=== PATIENT | male | born 1985 | race Caucasian/White ===

== ENCOUNTER → 2016-07-04 | Outpatient (CLI) | payer OTHER ==
--- NOTE | 2016-07-04 15:10 | RADRPT ---
EXAM DATE/TIME: 07/04/2016 14:10 [place] COMPARISON: No previous studies available for comparison. INDICATIONS : Nicotine dependence. MEDICAL HISTORY : None. SURGICAL HISTORY : None. ENCOUNTER: Initial ACUITY: 1 day PAIN SCORE: 0/10 LOCATION: chest FINDINGS: The cardiac silhouette is enlarged in transverse diameter. The lungs are free of acute parenchymal op acity. No effusions are identified. Osseous structures are intact. CONCLUSION: Cardiomegaly. No acute cardiopulmonary disease. Sánchez Bonilla MD on July 04, 2016 at 15:09 Board Certified Radiologist. This report was verified electronically.
--- NOTE | 2016-07-05 22:57 | EKG ---
Date Performed: 07/04/2016 Time Performed: 13:42:44 PTAGE: 30 years EKG: Sinus rhythm NORMAL ECG NO PREVIOUS TRACING DOCTOR: Margarita Reyes Interpretating Date/Time 07/05/2016 22:50:01
== END ==
LOC: HCAV 13:35
PROVIDERS: ATTEND Surgery
DX: F17.200 Nicotine dependence, unspecified, uncomplicated (principal)
CPT/HCPCS: 71020; 93005

== ENCOUNTER → 2016-08-22 | Outpatient (CLI) | payer OTHER ==
[~2016-08-22] VITALS: Ht 172.7 cm; Wt 157.9 kg
[~2016-08-22] MED LIST: INSULIN HUMAN REGULAR 1,000 UNITS/10 ML VIAL SQ PRN; LACTATED RINGER'S 1000 ML IV SCH; METOPROLOL TARTRATE 25 MG TAB PO PRN; PROPOFOL 200 MG/20 ML AMP IV ONE; SODIUM CHLORID 0.9% 500 ML IV SCH
[2016-08-22 09:54] VITALS: BP 143/82; PULSE 92; RESP 18; TEMP 98.5; O2SAT 97
[2016-08-22 11:22] VITALS: TEMP 97.4
--- NOTE | 2016-08-22 11:26 | GIPROC ---
[facility] [address] [facility], [address] EGD PROCEDURE REPORT EXAM DATE: 08/22/2016 PATIENT NAME: Butch Forrest MR #: [id number] BIRTHDATE: 1985 ATTENDING: Ray Nesbitt MD ORDER #: [id number] IMPROVEMENT INTERN: Aashish Jj and Cameron Roth STATUS: outpatient INDICATIONS: The patient is a 31 yr old male here for an EGD due to dyspepsia PROCEDURE PERFORMED: EGD w/ biopsy MEDICATIONS: None and Per Anesthesia. TOPICAL ANESTHETIC: none CONSENT: The patient understands the risks and benefits of the procedure and understands that these risks include, but are not limited to: sedation, allergic reaction, infection, perforation and/or bleeding. Alternative means of evaluation and treatment include, among others: physical exam, x-rays, and/or surgical intervention. The patient elects to proceed with this endoscopic procedure. medical equipment was checked for proper function. Hand hygiene and appropriate measures for infection prevention was taken. After the risks, benefits and alternatives of the procedure were thoroughly explained, Informed consent was verified, confirmed and timeout was successfully executed by the treatment team. The patient was anesthetized with topical anesthesia and the Pentax EG-[id number] endoscope was introduced through the mouth and advanced to the second portion of the duodenum. Retroflexed views revealed no abnormalities The gastroscope was then slowly withdrawn and removed. Normal exam, Bx to R/O H pylori. ADVERSE EVENTS: There were no complications. IMPRESSIONS: 1. Normal exam, Bx to R/O H pylori 2. Retroflexed views revealed no abnormalities RECOMMENDATIONS: 1. await biopsy results. Biopsy results will not be ready for 7-10 days. If you don't hear from us in two weeks, call our office for biopsy results. 2. ok to have beriatric surgery PATIENT CONDITION: stable DISPOSITION: Home REPEAT EXAM: Return as needed for EGD. Ray Nesbitt MD eSigned: Ray Nesbitt MD 08/22/2016 11:25 AM cc: CPT CODES: 37978 Upper gastrointestinal endoscopy including esophagus, stomach, and either the duodenum and/or jejunum as appropriate; with biopsy, single or multiple ICD CODES: 536.8 Dyspepsia and other specified disorders of function of stomach The ICD and CPT codes recommended by this software are interpretations from the data that the clinical staff has captured with the software. The verification of the translation of this report to the ICD and CPT codes and modifiers is the sole responsibility of the health care institution and practicing physician where this report was generated. Review [employer] will not be held responsible for the validity of the ICD and CPT codes included on this report. AMA assumes no liability for data contained or not contained herein. CPT is a registered trademark of the [employer]. [id number]
[2016-08-22 11:40] VITALS: BP 125/81; PULSE 83; RESP 16; O2SAT 96
== END ==
LOC: HEND 09:20
PROVIDERS: ATTEND Hospitalist
DX: Z01.818 Encounter for other preprocedural examination (principal); R10.13 Epigastric pain; E66.01 Morbid (severe) obesity due to excess calories; Z68.43 Body mass index [BMI] 50.0-59.9, adult
CPT/HCPCS: 00740; 43239; 88305; 88312; J7120

== ENCOUNTER 2017-05-14 23:45 | Inpatient (IN) | payer OTHER ==
[~2017-05-14] VITALS: Ht 172.7 cm; Wt 165.0 kg
[2017-05-14] MEDS: SODIUM CHLORIDE 0.9% FLUSH 10 ML FLUSH IV FLUSH SCH (21:00)
[~2017-05-14 23:45] MED LIST changes: -INSULIN HUMAN REGULAR 1,000 UNITS/10 ML VIAL SQ PRN; -LACTATED RINGER'S 1000 ML IV SCH; -METOPROLOL TARTRATE 25 MG TAB PO PRN; +NALOXONE HCL 0.4 MG/ML AMP IV PUSH PRN; -PROPOFOL 200 MG/20 ML AMP IV ONE; -SODIUM CHLORID 0.9% 500 ML IV SCH; +SODIUM CHLORIDE 0.9% FLUSH 10 ML FLUSH IV FLUSH PRN; +Vancomycin Consult Pharmacy 1 EA OTHER SCH
[2017-05-15] VITALS: BP 129/67; PULSE 90; RESP 18; TEMP 98.8; O2SAT 98
[2017-05-15] MEDS: SODIUM CHLORIDE 0.9% FLUSH 10 ML FLUSH IV FLUSH SCH ×2 (01:06→21:15)
[2017-05-15] MEDS: PIPERACIL-TAZO 4.5 GM PREMIX 100 ML IV SCH ×4 (02:21→21:12)
[2017-05-15] MEDS ORDERED: VANCOMYCIN INJ 2,500 MG in SODIUM CHLORID 0.9% 500 ML INJ 500 ML IV ONE (03:00)
[2017-05-15 04:00] VITALS: BP 119/58; PULSE 88; RESP 18; TEMP 98.2; O2SAT 97
--- NOTE | 2017-05-15 04:54 | HHI.HP ---
[facility] No Primary Care Physician Admission Diagnosis Cellulitis - suspected abscess right groin/inguinal area Diagnoses: (1) Cellulitis of groin, right (2) Sepsis (3) History of MRSA infection Chief Complaint: Right groin pain, tenderness, swelling Travel History International Travel<30 Days: No Contact w/Intl Traveler <30 Da: No History of Present Illness Mr. Forrest is a very pleasant 31-year-old male with a history of right thumb MRSA infection who presented to the emergency room in [place] for evaluation of right inguinal/groin area swelling, pain, and fevers. His temperature was 100.3 on admission and he was tachycardic with heart rate of 109. White blood count was elevated at 22.4 and left shift was noted. The patient had a CT of the abdomen and pelvis which showed right inguinal cellulitis with no abscess formation and the patient was transferred to [facility] for further medical management. The patient is seen in his hospital room. He reports having symptoms for since Friday or Friday. He had a "boil" that he popped on his left upper medial thigh that drained purulent exudate and has continued to drain since Friday or Friday. Around the same time, he noted a lump in the right groin/inguinal region that got progressively more painful and hard. He also had chills and diaphoresis along with generally feeling not very well with fatigue, nausea, and increased sleepiness. He denies any chest pain, cough, shortness of breath , diarrhea, vomiting, or recorded fevers. Review of Systems Except as stated in HPI: all other systems reviewed are Neg Past Family Social History Past Medical History Right thumb infection - history of MRSA 2003 Denies diabetes mellitus, hypertension, coronary artery disease, congestive heart failure, atrial fibrillation, COPD, asthma, emphysema, liver problems, kidney problems, DVT, PE, CVA, seizure, thyroid dysfunction, or cancers. . Past Surgical History 3 surgeries to irrigate and debride right thumb finger tip - I&D 2003 . Reported Medications Reported Meds & Active Scripts Active No Active Prescriptions or Reported Medications . Allergies: Coded Allergies: No Known Allergies (Verified Allergy, Unknown, 05/14/17) Active Ordered Medications . Current Medications Sodium Chloride (NS Flush) 2 ml UNSCH PRN IV FLUSH FLUSH AFTER USING IV ACCESS ; Start 05/14/17 at 20:45 Sodium Chloride (NS Flush) 2 ml BID IV FLUSH Last administered on 05/15/17 01 :06; Start 05/14/17 at 21:00 Naloxone HCl (Narcan Inj) 0.4 mg UNSCH PRN IV PUSH SEE LABEL COMMENTS; Start 05/14/17 at 20:45 Pharmacy Profile Note 0 ml @ 0 mls/hr UNSCH OTHER ; Start 05/14/17 at 21:00 Piperacillin Sod/ Tazobactam Sod 100 ml @ 200 mls/hr Q6H IV Last administered on 05/15/17 02:21; Start 05/15/17 at 02:00 Vancomycin HCl 2500 mg/Sodium Chloride 525 ml @ 250 mls/hr ONCE ONCE IV Last administered on 05/15/17 02:42; Start 05/15/17 at 03:00; Stop 05/15/17 at 05 :05 Family History Denies any chronic medical conditions such as diabetes mellitus or heart disease in mother, father, siblings, or son . Social History Tobacco: Smokes 1 pack per day for 14 years Alcohol: Rare alcohol use Illicit Drugs: Occasional marijuana use The patient works on a [employer] - is a former [email or web address] employee - worked as a APPLICATIONS SYSTEMS ENGINEER in [place] He enjoys fishing and hunting . Physical Exam Vital Signs Vital Signs Date Time Temp Pulse Resp B/P (MAP) Pulse Ox O2 Delivery O2 Flow Rate FiO2 05/15/17 00:00 98.8 90 18 129/67 (87) 98 Physical Exam GENERAL: This is a morbidly obese male patient, in no apparent distress. SKIN: No rashes, ecchymoses or lesions. Somewhat diaphoretic. HEAD: Atraumatic. Normocephalic. EYES: No scleral icterus. No injection or drainage. ENT: Nose without bleeding, purulent drainage. NECK: Trachea midline. No JVD. CARDIOVASCULAR: Regular rate and rhythm without murmurs, gallops, or rubs. RESPIRATORY: Clear to auscultation. Breath sounds equal bilaterally. No wheezes , rales, or rhonchi. GASTROINTESTINAL: Abdomen soft, non-tender, nondistended. No guarding. : Left groin with small dime-sized open wound to left upper medial thigh near groin draining purulent exudate. Right inguinal groin region with palpable circumscribed mass that is hard and exquisitely tender to palpation. MUSCULOSKELETAL: Extremities without clubbing, cyanosis, or edema. No calf tenderness. NEUROLOGICAL: Awake and alert. Motor and sensory grossly within normal limits. Normal speech. . Laboratory From [place]: Laboratory Tests Test 05/14/17 18:15 05/14/17 18:22 05/14/17 18:32 White Blood Count 22.4 TH/MM3 Red Blood Count 4.44 MIL/MM3 Hemoglobin 12.5 GM/DL Hematocrit 37.1 % Mean Corpuscular Volume 83.6 FL Mean Corpuscular Hemoglobin 28.2 PG Mean Corpuscular Hemoglobin Concent 33.7 % Red Cell Distribution Width 12.5 % Platelet Count 331 TH/MM3 Mean Platelet Volume 10.0 FL Immature Granulocyte % (Auto) 0.6 % Neutrophils (%) (Auto) 77.0 % Lymphocytes (%) (Auto) 12.7 % Monocytes (%) (Auto) 8.9 % Eosinophils (%) (Auto) 0.4 % Basophils (%) (Auto) 0.4 % Immature Granulocyte # (Auto) 0.1 TH/MM3 Neutrophils # (Auto) 17.3 TH/MM3 Lymphocytes # (Auto) 2.9 TH/MM3 Monocytes # (Auto) 2.0 TH/MM3 Eosinophils # (Auto) 0.1 TH/MM3 Basophils # (Auto) 0.1 TH/MM3 CBC Comment DIFF FINAL Differential Comment Blood Urea Nitrogen 6 MG/DL Creatinine 0.80 MG/DL Random Glucose 91 MG/DL Total Protein 7.2 GM/DL Albumin 3.0 GM/DL Calcium Level 8.5 MG/DL Alkaline Phosphatase 62 U/L Aspartate Amino Transf (AST/SGOT) 12 U/L Alanine Aminotransferase (ALT/SGPT) 32 U/L Total Bilirubin 0.5 MG/DL Sodium Level 137 MEQ/L Potassium Level 3.6 MEQ/L Chloride Level 102 MEQ/L Carbon Dioxide Level 26.0 MEQ/L Anion Gap 9 MEQ/L Estimat Glomerular Filtration Rate 112 ML/MIN Urine Collection Type CATH Urine Color YELLOW Urine Turbidity CLEAR Urine pH 6.0 Urine Specific [place] LESS/EQUAL 1.005 Urine Protein NEG mg/dL Urine Glucose (UA) NEG mg/dL Urine Ketones NEG mg/dL Urine Occult Blood TRACE Urine Nitrite NEG Urine Bilirubin NEG Urine Urobilinogen 0.2 MG/DL Urine Leukocyte Esterase NEG Microscopic Urinalysis Comment CATH-CULT NOT IND Lactic Acid Level 0.6 mmol/L . Imaging From [place] Last Impressions Abdomen/Pelvis CT 05/14/17 9535 Signed Impressions: Service Date/Time: Sunday, May 14, 2017 19:14 - CONCLUSION: 1. Right inguinal cellulitis with no abscess formation. 2. Innumerable noncalcified gallstones in the gallbladder lumen. 3. Nonobstructing 3 mm calculus in the lower pole collecting system of the right kidney. Benign cortical cyst in the anterior midpole of the left kidney. MD Luis Armando Lowery VTE Risk Assessment Luis Armando VTE Risk Assessment: Mod/High Risk (score >= 2) Caprini Risk Assessment Model Point Value = 1 Point Value = 2 Point Value = 3 Point Value = 5 Age 41-60 Minor surgery BMI > 25 kg/m2 Swollen legs Varicose veins or History of unexplained or recurrent spontaneous Oral contraceptives or hormone replacement Sepsis (< 1 month) Serious lung disease, including pneumonia (< 1 month) Abnormal pulmonary function Acute myocardial infarction Congestive heart failure (< 1 month) History of inflammatory bowel disease Medical patient at bed rest Age 61-74 Arthroscopic surgery Major open surgery (> 45 min) Laparoscopic surgery (> 45 min) Malignancy Confined to bed (> 72 hours) Immobilizing plaster cast Central venous access Age >= 75 History of VTE Family history of VTE Factor V Leiden Prothrombin 00638M Lupus anticoagulant Anticardiolipin antibodies Elevated serum homocysteine Heparin-induced thrombocytopenia Other congenital or acquired thrombophilia Stroke (< 1 month) Elective arthroplasty Hip, pelvis, or leg fracture Acute spinal cord injury (< 1 month) Prophylaxis Regimen Total Risk Factor Score Risk Level Prophylaxis Regimen 0-1 Low Early ambulation 2 Moderate Order ONE of the following: *Sequential Compression Device (SCD) *Heparin 5000 units SQ BID 3-4 Higher Order ONE of the following medications: *Heparin 5000 units SQ TID *Enoxaparin/Lovenox 40 mg SQ daily (WT < 150 kg, CrCl > 30 mL/min) *Enoxaparin/Lovenox 30 mg SQ daily (WT < 150 kg, CrCl > 10-29 mL/min) *Enoxaparin/Lovenox 30 mg SQ BID (WT < 150 kg, CrCl > 30 mL/min) AND/OR *Sequential Compression Device (SCD) 5 or more Highest Order ONE of the following medications: *Heparin 5000 units SQ TID (Preferred with Epidurals) *Enoxaparin/Lovenox 40 mg SQ daily (WT < 150 kg, CrCl > 30 mL/min) *Enoxaparin/Lovenox 30 mg SQ daily (WT < 150 kg, CrCl > 10-29 mL/min) *Enoxaparin/Lovenox 30 mg SQ BID (WT < 150 kg, CrCl > 30 mL/min) AND *Sequential Compression Device (SCD) Assessment and Plan Problem List: (1) Cellulitis of groin, right ICD Code: L03.314 - Cellulitis of groin (2) Sepsis ICD Code: A41.9 - Sepsis, unspecified organism (3) History of MRSA infection ICD Code: Z86.14 - Personal history of Methicillin resistant Staphylococcus aureus infection (4) Tobacco abuse ICD Code: Z72.0 - Tobacco use Assessment and Plan Mr. Forrest is a very pleasant 31-year-old male with a history of right thumb MRSA infection who presented to the emergency room in [place] for evaluation of right inguinal/groin area swelling, pain, and fevers. His temperature was 100.3 on admission and he was tachycardic with heart rate of 109. White blood count was elevated at 22.4 and left shift was noted. The patient had a CT of the abdomen and pelvis which showed right inguinal cellulitis with no abscess formation and the patient was transferred to [facility] [place] for further medical management. Sepsis - meets sepsis criteria with fever, tachycardia, leukocytosis, and suspected source of infection Cellulitis of right groin/inguinal area - abscess suspected based on examination - We will check an ultrasound of the right groin/inguinal area to further assess for abscess - Antibiotics: Vancomycin and Zosyn - Initial lactic acid was 0.6 - will recheck with morning labs - Initial WBC was 22.4 with left shift - we will recheck CBC and follow trends - Consult wound care nurse to evaluate small draining wound on left thigh - appreciate assistance with recommendations for wound care - Contact isolation initiated for history of MRSA Tobacco abuse - Advised smoking cessation DVT prophylaxis - Heparin 5000 units subq BID Discussed Condition With Dr. Oung, patient, and bedside RN Physician Certification 2 Midnight Certification Type: Admission for Inpatient Services Order for Inpatient Services The services are ordered in accordance with Medicare regulations or non- Medicare payer requirements, as applicable. In the case of services not specified as inpatient-only, they are appropriately provided as inpatient services in accordance with the 2-midnight benchmark. Estimated LOS (days): 3 days is the estimated time the patient will need to remain in the hospital, assuming treatment plan goals are met and no additional complications. Post-Hospital Plan: Home Madeline Plascencia May 15, 2017 04:54
[2017-05-15 07:16] LABS: BASOPHIL # 0.2 TH/MM3 (0-0.2); BASOPHIL % 0.9 % (0.0-2.0); EOSINOPHIL # 0.2 TH/MM3 (0-0.4); EOSINOPHIL % 1.2 % (0.0-4.0); HEMATOCRIT 33.9 % (39.0-51.0); HEMO FLAGS DIFF FINAL; LYMPH % 7.3 % (9.0-44.0); LYMPHOCYTE # 1.4 TH/MM3 (1.0-4.8); MEAN CELL VOLUME 82.1 FL (80.0-100.0); MEAN CORPUSCULAR HEMOGLOBIN 28.6 PG (27.0-34.0); MEAN CORPUSCULAR HGB CONC 34.9 % (32.0-36.0); MONO % 8.2 % (0.0-8.0); NEUT % 82.4 % (16.0-70.0); PLATELET COUNT 284 TH/MM3 (150-450); RED BLOOD COUNT 4.13 MIL/MM3 (4.50-5.90); RED CELL DISTRIBUTION WIDTH 13.1 % (11.6-17.2); WHITE BLOOD COUNT 19.4 TH/MM3 (4.0-11.0)
[2017-05-15 07:43] LABS: BICARBONATE 25.3 MEQ/L (21.0-32.0); POTASSIUM 3.6 MEQ/L (3.5-5.1)
--- NOTE | 2017-05-15 08:33 | HHI.PR ---
Subjective Remarks Patient admitted Today, He is a very pleasant 31 y/o male with was seen initially at [place] [facility] due to Right inguinal/groin area swelling, pain, and fevers. His temperature was 100.3 on admission and he was tachycardic with heart rate of 109. White blood count was elevated at 22.4 and left shift was noted. The patient had a CT of the abdomen and pelvis which showed right inguinal cellulitis with no abscess formation and the patient was transferred to [facility] [place] for further medical management. He had a "boil" that he popped on his left upper medial thigh that drained purulent exudate and has continued to drain since Friday or Friday. he has history of right thumb infection and MRSA in 2003. has tobacco dependence and Marijuana abuse. Seen in his bedroom stable he had not drainable tissue on the right side as per Ultrasound, on the left as per public health clinical nurse specialist okay is packing, will ask for evaluation by General Surgery by tomorrow morning once on Antibiotics for at least 24 hours. Objective Vital Signs Date Time Temp Pulse Resp B/P (MAP) Pulse Ox O2 Delivery O2 Flow Rate FiO2 05/15/17 04:00 98.2 88 18 119/58 (78) 97 05/15/17 00:00 98.8 90 18 129/67 (87) 98 Result Diagram: 05/15/17 0700 05/15/17 0700 Imaging Last Impressions Soft Tissue Ultrasound 05/15/17 0000 Signed Impressions: Service Date/Time: April 09:13 - CONCLUSION: Apparent soft tissue edema with no focal abscess identified. Leroy Jackson MD Procedures Wound care with Packing on the left groin area. Other Results Laboratory Tests Test 05/15/17 07:00 White Blood Count 19.4 TH/MM3 Red Blood Count 4.13 MIL/MM3 Hemoglobin 11.8 GM/DL Hematocrit 33.9 % Mean Corpuscular Volume 82.1 FL Mean Corpuscular Hemoglobin 28.6 PG Mean Corpuscular Hemoglobin Concent 34.9 % Red Cell Distribution Width 13.1 % Platelet Count 284 TH/MM3 Mean Platelet Volume 8.1 FL Neutrophils (%) (Auto) 82.4 % Lymphocytes (%) (Auto) 7.3 % Monocytes (%) (Auto) 8.2 % Eosinophils (%) (Auto) 1.2 % Basophils (%) (Auto) 0.9 % Neutrophils # (Auto) 16.0 TH/MM3 Lymphocytes # (Auto) 1.4 TH/MM3 Monocytes # (Auto) 1.6 TH/MM3 Eosinophils # (Auto) 0.2 TH/MM3 Basophils # (Auto) 0.2 TH/MM3 CBC Comment DIFF FINAL Differential Comment Blood Urea Nitrogen 7 MG/DL Creatinine 0.68 MG/DL Random Glucose 99 MG/DL Calcium Level 8.2 MG/DL Sodium Level 137 MEQ/L Potassium Level 3.6 MEQ/L Chloride Level 104 MEQ/L Carbon Dioxide Level 25.3 MEQ/L Anion Gap 8 MEQ/L Estimat Glomerular Filtration Rate 135 ML/MIN Lactic Acid Level 0.6 mmol/L Objective Remarks GENERAL: This is a morbidly obese male patient, in no apparent distress. SKIN: No rashes, ecchymoses or lesions. Somewhat diaphoretic. HEAD: Atraumatic. Normocephalic. EYES: No scleral icterus. No injection or drainage. ENT: Nose without bleeding, purulent drainage. NECK: Trachea midline. No JVD. CARDIOVASCULAR: Regular rate and rhythm without murmurs, gallops, or rubs. RESPIRATORY: Clear to auscultation. Breath sounds equal bilaterally. No wheezes , rales, or rhonchi. GASTROINTESTINAL: Abdomen soft, non-tender, nondistended. No guarding. : Left groin with small dime-sized open wound to left upper medial thigh near groin draining purulent exudate. Right inguinal groin region with palpable circumscribed mass that is hard and exquisitely tender to palpation. MUSCULOSKELETAL: Extremities without clubbing, cyanosis, or edema. No calf tenderness. NEUROLOGICAL: Awake and alert. Motor and sensory grossly within normal limits. Normal speech. Medications and IVs Current Medications Medications (Trade) Dose Ordered Sig/Nelia Route Start Time Stop Time Status Last Admin (NS Flush) 2 ml UNSCH PRN IV FLUSH 05/14/17 20:45 (NS Flush) 2 ml BID IV FLUSH 05/14/17 21:00 05/15/17 01:06 (Narcan Inj) 0.4 mg UNSCH PRN IV PUSH 05/14/17 20:45 Pharmacy Profile Note 0 ml @ 0 mls/hr UNSCH OTHER 05/14/17 21:00 Piperacillin Sod/ Tazobactam Sod 100 ml @ 200 mls/hr Q6H IV 05/15/17 02:00 05/15/17 02:21 (Heparin Inj) 5,000 units Q12HR SQ 05/15/17 09:00 A/P Assessment and Plan 1. Cellulitis of right groin/inguinal area - due to abscess suspected he had Ultrasound that came Negative for drainable abscess at this time on Vancomycin and Zosyn, Initial Lactic Acid 0.6, Leukocytosis trending down from 22.4 to 19.4 wound care following, performing Packing on the left side and because he has history of MRSA on Isolation. Plan to consult General Surgery for tomorrow once receive antibiotics for at least 24 hours. Discussed with public health clinical nurse specialist Miss Lisa Marshall recommended to clean wound with Normal Saline and Pat dry Maxorb extra AG into single strip and pack wound. 2. Morbid Obesity strongly recommended diet and exercise as outpatient 3. Tobacco dependence strongly recommended to stop smoking. DVT prophylaxis - Heparin 5000 units subq BID Discussed Condition With Patient, Nurse Miss Rivas, wound care Miss Lisa Marshall Discharge Planning Expected in one to two days. David Omer MD May 15, 2017 08:33
--- NOTE | 2017-05-15 09:32 | RADRPT ---
EXAM DATE/TIME: 05/15/2017 09:13 [facility] COMPARISON: CT ABDOMEN & PELVIS W CONTRAST, May 14, 2017, 19:14. INDICATIONS : Abscess. MEDICAL HISTORY : Mass right groin. SURGICAL HISTORY : None. ENCOUNTER: Subsequent ACUITY: 1 week PAIN SCORE: 6/10 LOCATION: Right groin. AREA EVALUATED: Right groin/right inguinal canal FINDINGS: A targeted ultrasound examination was performed in the right groin in the region of concern. This dem onstrates mild dependent edema with hazy appearance. There is no focal mass or fluid collection. CONCLUSION: Apparent soft tissue edema with no focal abscess identified. Leroy Jackson MD on May 15, 2017 at 9:28 Board Certified Radiologist. This report was verified electronically.
[2017-05-15] MEDS: HEPARIN SODIUM - SQ 10,000 UNITS/ML VIAL SQ SCH ×2 (11:30→21:18)
[2017-05-15 12:00] VITALS: BP 131/67; PULSE 89; RESP 18; TEMP 98.7; O2SAT 95
[2017-05-15] MEDS: VANCOMYCIN INJ 2,500 MG in SODIUM CHLORID 0.9% 500 ML INJ 500 ML IV SCH ×2 (12:00→23:52)
[2017-05-15 12:48] LABS: HDL CHOLESTEROL 19.8 MG/DL (40.0-60.0); LDL CHOLESTEROL 74 MG/DL (0-99)
--- NOTE | 2017-05-15 15:56 | PD.WCN.NOT ---
Wound Consult Description: Consult received from Madeline ABDULLAHI for wound management of L upper medial thigh wound-draining please assist with recommendations for wound care. Communicated with: RN Iris and call placed to Doctor Ottoniel Cai for orders Recommendation: Please cleanse wound to L upper medial thigh with normal saline and pat dry.Cut Maxorb extra AG into single strip and pack wound. Apply skin prep to periwound before covering with bordered gauze dressing. Change dressing every other day or as needed for saturation is dislodgment. Patient will need outpatient instruction for wound care and has family in home that can assist him with dressing changes. Additional Information: Patient seen on for evaluation of wound management of L upper medial thigh wound-draining. Patient positioned self on back in bed with no assistance for wound assessment. skin folds of L groin to reveal small wound to L medial upper thigh just below the groin.Wound bed presents with ~80% clean red tissue and ~20% yellow exudate. Wound drainage is moderate and cloudy, thick , pink,and yellow with foul odor. Periwound presents with induration from 6 to 11 o'clock. Drainage increased with expression.Wound measures ~1cm x ~2cm x 2.4cm. Wound depth is assessed in center of wound. Cleansed wound with normal saline and pat dry. Applied dry 4x4 gauze over wound bed and secured with 1 piece of silk tape. RN to apply dressing as recommended when supplies obtained. Lisa Marshall [facility] May 15, 2017 15:56
[2017-05-15 16:00] VITALS: BP 142/75; PULSE 94; RESP 18; TEMP 98.8; O2SAT 96
[2017-05-15 17:14] LABS: HEMOGLOBIN A1a 1.1 %; HEMOGLOBIN A1b 1.5 %; HEMOGLOBIN Ao 85.9 %; HEMOGLOBIN P3 3.6 %
[2017-05-15] MEDS ORDERED: ACETAMINOPHEN 325 MG TAB PO PRN (17:15)
[2017-05-15] MEDS: ACETAMINOPHEN/HYDROcodone 325 MG/10 MG TAB PO PRN ×2 (18:36→22:28)
[2017-05-15 21:01] VITALS: BP 136/64; PULSE 91; RESP 18; TEMP 99.3; O2SAT 95
[2017-05-16] VITALS (7 sets, daily range): BP systolic 103–127; BP diastolic 54–94; PULSE 70–87; RESP 18–22; TEMP 98.1–98.7; O2SAT 94–98
[2017-05-16] MEDS: ACETAMINOPHEN/HYDROcodone 325 MG/10 MG TAB PO PRN (04:14)
[2017-05-16] MEDS: PIPERACIL-TAZO 4.5 GM PREMIX 100 ML IV SCH ×4 (05:56→22:46)
[2017-05-16 07:28] LABS: AUTOMATED NEUTROPHIL # 10.6 TH/MM3 (1.8-7.7); BASOPHIL # 0.1 TH/MM3 (0-0.2); BASOPHIL % 0.4 % (0.0-2.0); EOSINOPHIL # 0.8 TH/MM3 (0-0.4); EOSINOPHIL % 5.9 % (0.0-4.0); HEMATOCRIT 34.5 % (39.0-51.0); HEMO FLAGS DIFF FINAL; LYMPH % 9.5 % (9.0-44.0); LYMPHOCYTE # 1.3 TH/MM3 (1.0-4.8); MEAN CELL VOLUME 83.3 FL (80.0-100.0); MEAN CORPUSCULAR HEMOGLOBIN 28.3 PG (27.0-34.0); MONO % 8.8 % (0.0-8.0); NEUT % 75.4 % (16.0-70.0); PLATELET COUNT 271 TH/MM3 (150-450); RED BLOOD COUNT 4.14 MIL/MM3 (4.50-5.90); RED CELL DISTRIBUTION WIDTH 13.2 % (11.6-17.2); WHITE BLOOD COUNT 14.1 TH/MM3 (4.0-11.0)
[2017-05-16 07:47] LABS: BICARBONATE 27.3 MEQ/L (21.0-32.0)
[2017-05-16] MEDS: SODIUM CHLORIDE 0.9% FLUSH 10 ML FLUSH IV FLUSH SCH ×2 (09:00→22:55)
[2017-05-16] MEDS: HEPARIN SODIUM - SQ 10,000 UNITS/ML VIAL SQ SCH ×2 (09:00→22:46)
--- NOTE | 2017-05-16 09:17 | HHI.PR ---
Subjective Remarks He is a very pleasant 31 y/o male with was seen initially at [place] [facility] due to Right inguinal/groin area swelling, pain, and fevers. His temperature was 100.3 on admission and he was tachycardic with heart rate of 109. White blood count was elevated at 22.4 and left shift was noted. The patient had a CT of the abdomen and pelvis which showed right inguinal cellulitis with no abscess formation and the patient was transferred to [facility] [facility] [place] for further medical management. He had a "boil" that he popped on his left upper medial thigh that drained purulent exudate and has continued to drain since Friday or Friday. he has history of right thumb infection and MRSA in 2003. has tobacco dependence and Marijuana abuse. Seen in his bedroom stable he had not drainable tissue on the right side as per Ultrasound, on the left as per ncqa specialist okay is packing, will ask for evaluation by General Surgery by tomorrow morning once on Antibiotics for at least 24 hours. 05/16: Seen in his bedroom, Pain medication adjusted, made NPO and asked for General Surgery evaluation may need procedure his WBC count is trending down, was discussed with nurse and Associate Professor Of EngineeringTool Shaper Setup Operator. No nausea, vomit or diarrhea. Objective Vital Signs Date Time Temp Pulse Resp B/P (MAP) Pulse Ox O2 Delivery O2 Flow Rate FiO2 05/16/17 08:13 98.3 70 20 103/54 (70) 96 05/16/17 04:00 98.5 83 22 121/94 (103) 98 05/16/17 03:15 79 05/16/17 00:00 98.3 81 22 110/94 (99) 94 05/15/17 21:01 99.3 91 18 136/64 (88) 95 05/15/17 16:00 98.8 94 18 142/75 (97) 96 05/15/17 12:00 98.7 89 18 131/67 (88) 95 I/O 05/15/17 05/15/17 05/15/17 05/16/17 05/16/17 05/16/17 07:00 15:00 23:00 07:00 15:00 23:00 Intake Total 400 ml Output Total 500 ml Balance -100 ml Intake Oral 400 ml Output Urine Total 500 ml Stool Total 0 ml # Voids 3 # Bowel Movements 1 Result Diagram: 05/16/17 0618 05/16/17 0618 Imaging Last Impressions Soft Tissue Ultrasound 05/15/17 0000 Signed Impressions: Service Date/Time: April 09:13 - CONCLUSION: Apparent soft tissue edema with no focal abscess identified. Leroy Jackson MD Procedures Wound care with Packing on the left groin area. Other Results Laboratory Tests Test 05/15/17 07:00 05/16/17 06:18 Hemoglobin A1c 5.3 % Lactic Acid Level 0.6 mmol/L Triglycerides Level 102 MG/DL Cholesterol Level 114 MG/DL LDL Cholesterol 74 MG/DL HDL Cholesterol 19.8 MG/DL Cholesterol/HDL Ratio 5.75 RATIO Thyroid Stimulating Hormone 3rd Gen 1.510 uIU/ML White Blood Count 14.1 TH/MM3 Red Blood Count 4.14 MIL/MM3 Hemoglobin 11.7 GM/DL Hematocrit 34.5 % Mean Corpuscular Volume 83.3 FL Mean Corpuscular Hemoglobin 28.3 PG Mean Corpuscular Hemoglobin Concent 34.0 % Red Cell Distribution Width 13.2 % Platelet Count 271 TH/MM3 Mean Platelet Volume 8.4 FL Neutrophils (%) (Auto) 75.4 % Lymphocytes (%) (Auto) 9.5 % Monocytes (%) (Auto) 8.8 % Eosinophils (%) (Auto) 5.9 % Basophils (%) (Auto) 0.4 % Neutrophils # (Auto) 10.6 TH/MM3 Lymphocytes # (Auto) 1.3 TH/MM3 Monocytes # (Auto) 1.2 TH/MM3 Eosinophils # (Auto) 0.8 TH/MM3 Basophils # (Auto) 0.1 TH/MM3 CBC Comment DIFF FINAL Differential Comment Blood Urea Nitrogen 6 MG/DL Creatinine 0.73 MG/DL Random Glucose 102 MG/DL Calcium Level 8.0 MG/DL Sodium Level 138 MEQ/L Potassium Level 4.0 MEQ/L Chloride Level 104 MEQ/L Carbon Dioxide Level 27.3 MEQ/L Anion Gap 7 MEQ/L Estimat Glomerular Filtration Rate 125 ML/MIN Objective Remarks GENERAL: This is a morbidly obese male patient, in no apparent distress. SKIN: No rashes, ecchymoses or lesions. Somewhat diaphoretic. HEAD: Atraumatic. Normocephalic. EYES: No scleral icterus. No injection or drainage. ENT: Nose without bleeding, purulent drainage. NECK: Trachea midline. No JVD. CARDIOVASCULAR: Regular rate and rhythm without murmurs, gallops, or rubs. RESPIRATORY: Clear to auscultation. Breath sounds equal bilaterally. No wheezes , rales, or rhonchi. GASTROINTESTINAL: Abdomen soft, non-tender, nondistended. No guarding. : Left groin with small dime-sized open wound to left upper medial thigh near groin draining purulent exudate. Right inguinal groin region with palpable circumscribed mass that is hard and exquisitely tender to palpation. MUSCULOSKELETAL: Extremities without clubbing, cyanosis, or edema. No calf tenderness. NEUROLOGICAL: Awake and alert. Motor and sensory grossly within normal limits. Normal speech. Medications and IVs Current Medications Medications (Trade) Dose Ordered Sig/Nelia Route Start Time Stop Time Status Last Admin (NS Flush) 2 ml UNSCH PRN IV FLUSH 05/14/17 20:45 (NS Flush) 2 ml BID IV FLUSH 05/14/17 21:00 05/15/17 21:15 (Narcan Inj) 0.4 mg UNSCH PRN IV PUSH 05/14/17 20:45 Pharmacy Profile Note 0 ml @ 0 mls/hr UNSCH OTHER 05/14/17 21:00 Piperacillin Sod/ Tazobactam Sod 100 ml @ 200 mls/hr Q6H IV 05/15/17 02:00 05/16/17 05:56 (Heparin Inj) 5,000 units Q12HR SQ 05/15/17 09:00 05/15/17 21:18 Vancomycin HCl 2500 mg/Sodium Chloride 525 ml @ 250 mls/hr Q12H IV 05/15/17 12:00 05/15/17 23:52 Miscellaneous Information SPECIFIC LAB TO BE DRAWN:VANCOMYCIN TROUGH DATE TO... ONCE ONCE .XX 05/16/17 11:45 05/16/17 11:46 (Tylenol) 650 mg Q4H PRN PO 05/15/17 17:15 ([place] 5-325 Mg) 1 tab Q4H PRN PO 05/15/17 17:15 ([place] 10-325 Mg) 1 tab Q4H PRN PO 05/15/17 17:15 05/16/17 04:14 A/P Assessment and Plan 1. Cellulitis of right groin/inguinal area - due to abscess suspected he had Ultrasound that came Negative for drainable abscess at this time on Vancomycin and Zosyn, Initial Lactic Acid 0.6, Leukocytosis trending down from 22.4 to 19.4 wound care following, performing Packing on the left side and because he has history of MRSA on Isolation. Plan to consult General Surgery for tomorrow once receive antibiotics for at least 24 hours. Discussed with ncqa specialist Miss Lisa Marshall recommended to clean wound with Normal Saline and Pat dry Maxorb extra AG into single strip and pack wound. Leave the Patient NPO starting Now and asked for General Surgery consult may need I and D, following recommendations if not needed procedure today to re start diet. 2. Morbid Obesity strongly recommended diet and exercise as outpatient 3. Tobacco dependence strongly recommended to stop smoking. DVT prophylaxis - Heparin 5000 units subq BID Discussed Condition With Patient, Nurse Mr Samano, All questions answered to the best of my abilities. Discharge Planning Expected in one to two days. David Omer MD May 16, 2017 9:17 am
[2017-05-16] MEDS ORDERED: SODIUM CHLOR 0.9% 1000 ML INJ 1,000 ML IV SCH (09:30)
[2017-05-16] MEDS ORDERED: PHARMACY ORDERED LAB ONE (11:45)
[2017-05-16] MEDS ORDERED: HYDROmorphone HCL PF 1 MG/ML VIAL IV PUSH ONE (12:15)
[2017-05-16] MEDS: VANCOMYCIN INJ 2,500 MG in SODIUM CHLORID 0.9% 500 ML INJ 500 ML IV SCH ×2 (15:20→23:55)
[2017-05-16] MEDS: HYDROmorphone HCL 4 MG TAB PO PRN ×3 (15:49→22:45)
--- NOTE | 2017-05-16 21:42 | MB ---
cc: YON JOHNSON MD DATE OF CONSULTATION 05/16/2017 REASON FOR CONSULTATION Groin abscess. HISTORY OF PRESENT ILLNESS The patient is a 31-year-old male who presents with history of thumb MRSA infection presented to the emergency department with groin swelling pain. The patient started states both left and right groin area swelling that began Friday and continued to get worse. He states he popped a "pimple" with purulent drainage coming from the left side. He came to the emergency department for further evaluation including CT scan showing induration and cellulitic tissue around his groin area. He states the left groin started to improve, however, the right continued to get somewhat worse in pain and pressure. He had a recent ultrasound showing on the right side concern for cellulitic changes of groin area. No drainable discernible abscess. The patient did have a leukocytosis of 22,000 initially, but is improving with antibiotics. Surgery was consulted for further evaluation. PAST MEDICAL HISTORY MRSA thumb infection. PAST SURGICAL HISTORY Patient has had I&D of thumb in 2003. SOCIAL HISTORY Positive smoking, occasional ETOH, denies IVDA. MEDICATIONS No known medications. ALLERGIES No known drug allergies. FAMILY HISTORY Denies diabetes, hypertension. REVIEW OF SYSTEMS GENERAL: Denies fevers, chills. HEENT: Denies eye pain, ear pain. NECK: Denies swelling or pain. LUNGS: Denies cough or wheeze. HEART: Denies palpitation or pain. ABDOMEN: Denies nausea, vomiting, groin area complained of swelling and pain. INTEGUMENT: Complains of cellulitis, lesion. PSYCHIATRIC: No change in mood or sensorium. PHYSICAL EXAMINATION GENERAL: No acute distress. VITAL SIGNS: Temperature on admission is 98.8, pulse 90, respirations 18, blood pressure 128/67 and saturation 98%. HEENT: PERRLA, NECK: Supple. Trachea midline. LUNGS: Clear to auscultation, bilateral expansion. HEART: S1, S2 regular. ABDOMEN: Soft, nontender. Nondistended. : Left groin with a 1 x 1 cm opening left medial groin area with scant exudate. Positive induration and minimal cellulitic changes, right sided groin tenderness to palpation. induration, no fluctuance, palpation of definitive fluid. no significant erythema. EXTREMITIES: Warm, well-perfused NEUROLOGIC: 5/5 motor all extremities. GCS of 15. PSYCHIATRIC: Good insight, good judgment. LABORATORY AND DIAGNOSTIC DATA WBC 14.1, hemoglobin 11.7, hematocrit 34.5, platelets 271. Sodium 138, potassium four, chloride 104, BUN six, creatinine 0.7, glucose 102. IMAGING STUDIES Reviewed by myself. CT 05/14/2017 Right inguinal cellulitis. No abscess, gallstones calcification, renal stone. Soft tissue ultrasound - right groin edema, haziness, no focal fluid collection. ASSESSMENT The patient is a 31-year-old male history of MRSA infection presents with bilateral groin cellulitic infection. PLAN After full clinical, radiologic and laboratory workup, patient with above-named issues including groin cellulitis. At this point, I do not feel definitive abscess. The left side appears to have opened and some drainage from this and appears to have improved. The right side feels indurated and concerning for developing organizing abscess. However, I cannot appreciate this at this time. I currently recommend IV fluids and IV pain control, IV antibiotics. We will reassess and continue to follow. We will consider operative intervention when definitive abscess demarcates. MD KARINA Dooley/ /8:05 PM /9:20 PM MTDD
[2017-05-17] VITALS (9 sets, daily range): BP systolic 109–146; BP diastolic 52–72; PULSE 68–87; RESP 17–18; TEMP 97.5–98.6; O2SAT 92–99
[2017-05-17] MEDS: PIPERACIL-TAZO 4.5 GM PREMIX 100 ML IV SCH ×4 (02:57→20:23)
[2017-05-17] MEDS: HYDROmorphone HCL 4 MG TAB PO PRN ×5 (03:51→20:35)
[2017-05-17] MEDS: SODIUM CHLORIDE 0.9% FLUSH 10 ML FLUSH IV FLUSH SCH ×2 (08:21→20:29)
[2017-05-17] MEDS: HEPARIN SODIUM - SQ 10,000 UNITS/ML VIAL SQ SCH ×2 (08:23→20:28)
--- NOTE | 2017-05-17 08:26 | HHI.PR ---
Subjective Remarks He is a very pleasant 31 y/o male with was seen initially at [place] [facility] due to Right inguinal/groin area swelling, pain, and fevers. His temperature was 100.3 on admission and he was tachycardic with heart rate of 109. White blood count was elevated at 22.4 and left shift was noted. The patient had a CT of the abdomen and pelvis which showed right inguinal cellulitis with no abscess formation and the patient was transferred to [facility] [place] for further medical management. He had a "boil" that he popped on his left upper medial thigh that drained purulent exudate and has continued to drain since Friday or Friday. he has history of right thumb infection and MRSA in 2003. has tobacco dependence and Marijuana abuse. Seen in his bedroom stable he had not drainable tissue on the right side as per Ultrasound, on the left as per mission support specialist okay is packing, will ask for evaluation by General Surgery by tomorrow morning once on Antibiotics for at least 24 hours. 05/16: Seen in his bedroom, Pain medication adjusted, made NPO and asked for General Surgery evaluation may need procedure his WBC count is trending down, was discussed with nurse and Salesforce AdministratorData Entry Assistant. 05/17: Seen in his bedroom, discussed with nurse Miss Linn and with patient, no nausea, vomit or diarrhea, heavy growth of Staph Aureus MRSA on wound, will continue Vancomycin and Pharmacy consult for Vancomycin management, General Surgery consulted and recommended to follow for 05/18/17 will re evaluate for probable abscess management. Objective Vital Signs Date Time Temp Pulse Resp B/P (MAP) Pulse Ox O2 Delivery O2 Flow Rate FiO2 05/17/17 04:40 68 05/17/17 04:15 84 05/17/17 04:11 79 05/17/17 04:00 97.5 81 18 121/58 (79) 92 05/17/17 00:00 98.4 77 18 126/68 (87) 98 05/16/17 20:00 98.7 80 18 127/66 (86) 98 05/16/17 16:44 98.1 87 18 119/55 (76) 98 05/16/17 12:12 98.3 77 20 124/66 (85) 98 I/O 05/16/17 05/16/17 05/16/17 05/17/17 05/17/172/17 07:00 15:00 23:00 07:00 15:00 23:00 Intake Total 400 ml 1450 ml Output Total 500 ml 500 ml Balance -100 ml 950 ml Intake Oral 400 ml 1450 ml Output Urine Total 500 ml 500 ml Stool Total 0 ml # Voids 3 # Bowel Movements 1 Result Diagram: 05/16/17 0618 05/16/17 0618 Imaging Last Impressions Soft Tissue Ultrasound 05/15/17 0000 Signed Impressions: Service Date/Time: April 09:13 - CONCLUSION: Apparent soft tissue edema with no focal abscess identified. Leroy Jackson MD Procedures Wound care with Packing on the left groin area. Other Results Laboratory Tests Test 05/15/17 07:00 05/16/17 06:18 05/16/17 14:30 Hemoglobin A1c 5.3 % Lactic Acid Level 0.6 mmol/L Triglycerides Level 102 MG/DL Cholesterol Level 114 MG/DL LDL Cholesterol 74 MG/DL HDL Cholesterol 19.8 MG/DL Cholesterol/HDL Ratio 5.75 RATIO Thyroid Stimulating Hormone 3rd Gen 1.510 uIU/ML White Blood Count 14.1 TH/MM3 Red Blood Count 4.14 MIL/MM3 Hemoglobin 11.7 GM/DL Hematocrit 34.5 % Mean Corpuscular Volume 83.3 FL Mean Corpuscular Hemoglobin 28.3 PG Mean Corpuscular Hemoglobin Concent 34.0 % Red Cell Distribution Width 13.2 % Platelet Count 271 TH/MM3 Mean Platelet Volume 8.4 FL Neutrophils (%) (Auto) 75.4 % Lymphocytes (%) (Auto) 9.5 % Monocytes (%) (Auto) 8.8 % Eosinophils (%) (Auto) 5.9 % Basophils (%) (Auto) 0.4 % Neutrophils # (Auto) 10.6 TH/MM3 Lymphocytes # (Auto) 1.3 TH/MM3 Monocytes # (Auto) 1.2 TH/MM3 Eosinophils # (Auto) 0.8 TH/MM3 Basophils # (Auto) 0.1 TH/MM3 CBC Comment DIFF FINAL Differential Comment Blood Urea Nitrogen 6 MG/DL Creatinine 0.73 MG/DL Random Glucose 102 MG/DL Calcium Level 8.0 MG/DL Sodium Level 138 MEQ/L Potassium Level 4.0 MEQ/L Chloride Level 104 MEQ/L Carbon Dioxide Level 27.3 MEQ/L Anion Gap 7 MEQ/L Estimat Glomerular Filtration Rate 125 ML/MIN Vancomycin Level Trough 10.4 MCG/ML Objective Remarks GENERAL: This is a morbidly obese male patient, in no apparent distress. SKIN: No rashes, ecchymoses or lesions. Somewhat diaphoretic. HEAD: Atraumatic. Normocephalic. EYES: No scleral icterus. No injection or drainage. ENT: Nose without bleeding, purulent drainage. NECK: Trachea midline. No JVD. CARDIOVASCULAR: Regular rate and rhythm without murmurs, gallops, or rubs. RESPIRATORY: Clear to auscultation. Breath sounds equal bilaterally. No wheezes , rales, or rhonchi. GASTROINTESTINAL: Abdomen soft, non-tender, nondistended. No guarding. : Left groin with small dime-sized open wound to left upper medial thigh near groin draining purulent exudate. Right inguinal groin region with palpable circumscribed mass that is hard and exquisitely tender to palpation. MUSCULOSKELETAL: Extremities without clubbing, cyanosis, or edema. No calf tenderness. NEUROLOGICAL: Awake and alert. Motor and sensory grossly within normal limits. Normal speech. Medications and IVs Current Medications Medications (Trade) Dose Ordered Sig/Nelia Route Start Time Stop Time Status Last Admin (NS Flush) 2 ml UNSCH PRN IV FLUSH 05/14/17 20:45 (NS Flush) 2 ml BID IV FLUSH 05/14/17 21:00 05/17/17 08:21 (Narcan Inj) 0.4 mg UNSCH PRN IV PUSH 05/14/17 20:45 Pharmacy Profile Note 0 ml @ 0 mls/hr UNSCH OTHER 05/14/17 21:00 Piperacillin Sod/ Tazobactam Sod 100 ml @ 200 mls/hr Q6H IV 05/15/17 02:00 05/17/17 08:21 (Heparin Inj) 5,000 units Q12HR SQ 05/15/17 09:00 05/17/17 08:23 Vancomycin HCl 2500 mg/Sodium Chloride 525 ml @ 250 mls/hr Q12H IV 05/15/17 12:00 05/16/17 23:55 (Tylenol) 650 mg Q4H PRN PO 05/15/17 17:15 ([place] 5-325 Mg) 1 tab Q4H PRN PO 05/15/17 17:15 Sodium Chloride 1,000 ml @ 100 mls/hr Q10H IV 05/16/17 09:30 05/16/17 09:30 (Dilaudid Pf Inj) 1 mg DAILY PRN IV PUSH 05/16/17 12:15 (Dilaudid) 4 mg Q3H PRN PO 05/16/17 15:00 05/17/17 08:20 A/P Assessment and Plan 1. Cellulitis of right groin/inguinal area - due to abscess suspected he had Ultrasound that came Negative for drainable abscess at this time on Vancomycin and Zosyn, Initial Lactic Acid 0.6, Leukocytosis trending down from 22.4 to 19.4 wound care following, performing Packing on the left side and because he has history of MRSA on Isolation. has Blood culture negative for MRSA but his Wound has heavy growth of Staph aureus MRSA, continue Vancomycin and Zosyn by now and as per general Surgery will follow 05/18/17 for probable abscess drainage if amenable, as per case manager specialist recommended to clean wound with Normal Saline and Pat dry Maxorb extra AG into single strip and pack wound. 2. Morbid Obesity strongly recommended diet and exercise as outpatient 3. Tobacco dependence strongly recommended to stop smoking. DVT prophylaxis - Heparin 5000 units subq BID Discussed Condition With Patient, Nurse Miss Linn, All questions answered to the best of my abilities. Discharge Planning Once Improved and cleared by General Surgery, so far no BSI David Omer MD May 17, 2017 08:26
[2017-05-17] MEDS ORDERED: Vancomycin Consult Pharmacy 1 EA OTHER PRN (10:45)
[2017-05-17] MEDS ORDERED: VANCOMYCIN IV SCH (14:00)
[2017-05-17] MEDS ORDERED: SODIUM CHLOR 0.9% IV SCH (14:00)
[2017-05-17] MEDS: ACETAMINOPHEN/HYDROcodone 325 MG/5 MG TAB PO PRN (14:28)
--- NOTE | 2017-05-17 14:29 | HHI.PR ---
Subjective Subjective Notes Right side groin still more tender Objective Vitals/I&O Vital Signs Date Time Temp Pulse Resp B/P (MAP) Pulse Ox O2 Delivery O2 Flow Rate FiO2 05/17/17 12:20 97.7 71 17 109/52 (71) 98 Labs Laboratory Tests Test 05/16/17 14:30 Vancomycin Level Trough 10.4 Narrative Exam No fluctuance right groin at this time A/P Assessment and Plan Assessment: Bilateral groin cellulitis Plan: As per Dr. Morton's consult note, will follow and drain if abscess forms. Continue antibiotics and wound care for now. Leroy Gaona MD May 17, 2017 14:29
[2017-05-17] MEDS: VANCOMYCIN INJ 2,500 MG in SODIUM CHLORID 0.9% 500 ML INJ 500 ML IV SCH (14:34)
[2017-05-18] VITALS: BP 141/69; PULSE 88; RESP 18; TEMP 98.6; O2SAT 97
[2017-05-18] MEDS: HYDROmorphone HCL 4 MG TAB PO PRN ×7 (00:37→23:49)
[2017-05-18] MEDS: PIPERACIL-TAZO 4.5 GM PREMIX 100 ML IV SCH ×4 (02:18→20:20)
[2017-05-18] MEDS: VANCOMYCIN INJ 2,500 MG in SODIUM CHLORID 0.9% 500 ML INJ 500 ML IV SCH ×2 (03:04→15:12)
[2017-05-18 04:00] VITALS: BP 123/58; PULSE 73; RESP 18; TEMP 98.1; O2SAT 94
[2017-05-18 08:00] VITALS: BP 151/78; PULSE 87; RESP 16; TEMP 98.8; O2SAT 95
[2017-05-18] MEDS: SODIUM CHLORIDE 0.9% FLUSH 10 ML FLUSH IV FLUSH SCH ×2 (08:17→20:20)
[2017-05-18] MEDS: HEPARIN SODIUM - SQ 10,000 UNITS/ML VIAL SQ SCH ×2 (08:18→20:22)
--- NOTE | 2017-05-18 10:46 | HHI.PR ---
Subjective Remarks He is a very pleasant 31 y/o male with was seen initially at [facility] due to Right inguinal/groin area swelling, pain, and fevers. His temperature was 100.3 on admission and he was tachycardic with heart rate of 109. White blood count was elevated at 22.4 and left shift was noted. The patient had a CT of the abdomen and pelvis which showed right inguinal cellulitis with no abscess formation and the patient was transferred to [facility] [place] for further medical management. He had a "boil" that he popped on his left upper medial thigh that drained purulent exudate and has continued to drain since Friday or Friday. he has history of right thumb infection and MRSA in 2003. has tobacco dependence and Marijuana abuse. Seen in his bedroom stable he had not drainable tissue on the right side as per Ultrasound, on the left as per redevelopment specialist okay is packing, will ask for evaluation by General Surgery by tomorrow morning once on Antibiotics for at least 24 hours. 05/16: Seen in his bedroom, Pain medication adjusted, made NPO and asked for General Surgery evaluation may need procedure his WBC count is trending down, was discussed with nurse and Field WorkerAudio Specialist. 05/17: Seen in his bedroom, discussed with nurse Miss Linn and with patient, no nausea, vomit or diarrhea, heavy growth of Staph Aureus MRSA on wound, will continue Vancomycin and Pharmacy consult for Vancomycin management, General Surgery consulted and recommended to follow for 05/18/17 will re evaluate for probable abscess management. 05/18: Seen in his bedroom, continue present care, followed by General surgery, he complaint about the need for more pain medicine added NSAIDs. Toradol 10 mg every six hours and follow renal function. No nausea , vomit or diarrhea. Objective Vital Signs Date Time Temp Pulse Resp B/P (MAP) Pulse Ox O2 Delivery O2 Flow Rate FiO2 05/18/17 08:00 98.8 87 16 151/78 (102) 95 05/18/17 04:00 98.1 73 18 123/58 (79) 94 05/18/17 00:00 98.6 88 18 141/69 (93) 97 05/17/17 20:00 71 05/17/17 20:00 98.6 87 18 146/72 (96) 98 05/17/17 16:15 98.4 83 18 133/72 (92) 99 05/17/17 12:20 97.7 71 17 109/52 (71) 98 I/O 05/17/17 05/17/17 05/17/17 05/18/17 05/18/17 05/18/17 07:00 15:00 23:00 07:00 15:00 23:00 Intake Total 100 ml 720 ml 625 ml Balance 100 ml 720 ml 625 ml Intake Oral 520 ml IV Total 100 ml 200 ml 625 ml # Voids 3 4 5 # Bowel Movements 1 Result Diagram: 05/16/17 0618 05/16/17 0618 Imaging Last Impressions Soft Tissue Ultrasound 05/15/17 0000 Signed Impressions: Service Date/Time: April 09:13 - CONCLUSION: Apparent soft tissue edema with no focal abscess identified. Leroy Jackson MD Procedures Wound care with Packing on the left groin area. Other Results Laboratory Tests Test 05/15/17 07:00 05/16/17 06:18 05/16/17 14:30 Hemoglobin A1c 5.3 % Lactic Acid Level 0.6 mmol/L Triglycerides Level 102 MG/DL Cholesterol Level 114 MG/DL LDL Cholesterol 74 MG/DL HDL Cholesterol 19.8 MG/DL Cholesterol/HDL Ratio 5.75 RATIO Thyroid Stimulating Hormone 3rd Gen 1.510 uIU/ML White Blood Count 14.1 TH/MM3 Red Blood Count 4.14 MIL/MM3 Hemoglobin 11.7 GM/DL Hematocrit 34.5 % Mean Corpuscular Volume 83.3 FL Mean Corpuscular Hemoglobin 28.3 PG Mean Corpuscular Hemoglobin Concent 34.0 % Red Cell Distribution Width 13.2 % Platelet Count 271 TH/MM3 Mean Platelet Volume 8.4 FL Neutrophils (%) (Auto) 75.4 % Lymphocytes (%) (Auto) 9.5 % Monocytes (%) (Auto) 8.8 % Eosinophils (%) (Auto) 5.9 % Basophils (%) (Auto) 0.4 % Neutrophils # (Auto) 10.6 TH/MM3 Lymphocytes # (Auto) 1.3 TH/MM3 Monocytes # (Auto) 1.2 TH/MM3 Eosinophils # (Auto) 0.8 TH/MM3 Basophils # (Auto) 0.1 TH/MM3 CBC Comment DIFF FINAL Differential Comment Blood Urea Nitrogen 6 MG/DL Creatinine 0.73 MG/DL Random Glucose 102 MG/DL Calcium Level 8.0 MG/DL Sodium Level 138 MEQ/L Potassium Level 4.0 MEQ/L Chloride Level 104 MEQ/L Carbon Dioxide Level 27.3 MEQ/L Anion Gap 7 MEQ/L Estimat Glomerular Filtration Rate 125 ML/MIN Vancomycin Level Trough 10.4 MCG/ML Objective Remarks GENERAL: This is a morbidly obese male patient, in no apparent distress. SKIN: No rashes, ecchymoses or lesions. Somewhat diaphoretic. HEAD: Atraumatic. Normocephalic. EYES: No scleral icterus. No injection or drainage. ENT: Nose without bleeding, purulent drainage. NECK: Trachea midline. No JVD. CARDIOVASCULAR: Regular rate and rhythm without murmurs, gallops, or rubs. RESPIRATORY: Clear to auscultation. Breath sounds equal bilaterally. No wheezes , rales, or rhonchi. GASTROINTESTINAL: Abdomen soft, non-tender, nondistended. No guarding. : Left groin with small dime-sized open wound to left upper medial thigh near groin draining purulent exudate. Right inguinal groin region with palpable circumscribed mass that is hard and exquisitely tender to palpation. MUSCULOSKELETAL: Extremities without clubbing, cyanosis, or edema. No calf tenderness. NEUROLOGICAL: Awake and alert. Motor and sensory grossly within normal limits. Normal speech. Medications and IVs Current Medications Medications (Trade) Dose Ordered Sig/Nelia Route Start Time Stop Time Status Last Admin (NS Flush) 2 ml UNSCH PRN IV FLUSH 05/14/17 20:45 (NS Flush) 2 ml BID IV FLUSH 05/14/17 21:00 05/17/17 20:29 (Narcan Inj) 0.4 mg UNSCH PRN IV PUSH 05/14/17 20:45 Piperacillin Sod/ Tazobactam Sod 100 ml @ 200 mls/hr Q6H IV 05/15/17 02:00 05/18/17 08:17 (Heparin Inj) 5,000 units Q12HR SQ 05/15/17 09:00 05/18/17 08:18 (Tylenol) 650 mg Q4H PRN PO 05/15/17 17:15 ([place] 5-325 Mg) 1 tab Q4H PRN PO 05/15/17 17:15 05/17/17 14:28 (Dilaudid Pf Inj) 1 mg DAILY PRN IV PUSH 05/16/17 12:15 (Dilaudid) 4 mg Q3H PRN PO 05/16/17 15:00 05/18/17 08:19 Pharmacy Profile Note 0 ml @ 0 mls/hr UNSCH PRN OTHER 05/17/17 10:45 Vancomycin HCl 2500 mg/Sodium Chloride 525 ml @ 250 mls/hr Q12H IV 05/17/17 14:00 05/18/17 03:04 Miscellaneous Information SPECIFIC LAB TO BE LUCAS... ONCE ONCE .XX 05/19/17 13:45 05/19/17 13:46 A/P Assessment and Plan 1. Cellulitis of right groin/inguinal area - due to abscess suspected he had Ultrasound that came Negative for drainable abscess at this time on Vancomycin and Zosyn, Initial Lactic Acid 0.6, Leukocytosis trending down from 22.4 to 19.4 wound care following, performing Packing on the left side and because he has history of MRSA on Isolation. has Blood culture negative for MRSA but his Wound has heavy growth of Staph aureus MRSA, continue Vancomycin and Zosyn by now and as per general Surgery will follow 05/18/17 for probable abscess drainage if amenable, as per sales development specialist recommended to clean wound with Normal Saline and Pat dry Maxorb extra AG into single strip and pack wound. not yet ready for drainage from Surgical Standpoint, continue antibiotics and follow, No BSI. added Toradol. 2. Morbid Obesity strongly recommended diet and exercise as outpatient 3. Tobacco dependence strongly recommended to stop smoking. DVT prophylaxis - Heparin 5000 units subq BID Discussed Condition With Patient, Nurse Miss Linn, another two relatives in the room. All questions answered to the best of my abilities. Discharge Planning Once Improved and cleared by General Surgery, so far no BSI David Omer MD May 18, 2017 10:46
[2017-05-18 11:21] LABS: AUTOMATED NEUTROPHIL # 8.6 TH/MM3 (1.8-7.7); BASOPHIL % 0.3 % (0.0-2.0); EOSINOPHIL # 0.8 TH/MM3 (0-0.4); EOSINOPHIL % 7.4 % (0.0-4.0); HEMO FLAGS DIFF FINAL; LYMPH % 6.1 % (9.0-44.0); LYMPHOCYTE # 0.7 TH/MM3 (1.0-4.8); MEAN CELL VOLUME 81.7 FL (80.0-100.0); MEAN CORPUSCULAR HEMOGLOBIN 28.2 PG (27.0-34.0); MEAN CORPUSCULAR HGB CONC 34.6 % (32.0-36.0); MONO % 9.4 % (0.0-8.0); NEUT % 76.8 % (16.0-70.0); PLATELET COUNT 311 TH/MM3 (150-450); RED BLOOD COUNT 4.29 MIL/MM3 (4.50-5.90); RED CELL DISTRIBUTION WIDTH 13.2 % (11.6-17.2); WHITE BLOOD COUNT 11.2 TH/MM3 (4.0-11.0)
[2017-05-18 11:41] LABS: BICARBONATE 25.7 MEQ/L (21.0-32.0)
[2017-05-18 12:00] VITALS: BP 130/64; PULSE 91; RESP 16; TEMP 98.5; O2SAT 95
[2017-05-18 16:00] VITALS: BP 132/76; PULSE 92; RESP 16; TEMP 99.6; O2SAT 96
--- NOTE | 2017-05-18 16:15 | HHI.PR ---
cc: Mac Morton MD Subjective Subjective Notes still with right groin pain, no fevers Objective Vitals/I&O Vital Signs Date Time Temp Pulse Resp B/P (MAP) Pulse Ox O2 Delivery O2 Flow Rate FiO2 05/18/17 12:00 98.5 91 16 130/64 (86) 95 Labs Laboratory Tests Test 05/18/17 10:25 White Blood Count 11.2 Red Blood Count 4.29 Hemoglobin 12.1 Hematocrit 35.0 Mean Corpuscular Volume 81.7 Mean Corpuscular Hemoglobin 28.2 Mean Corpuscular Hemoglobin Concent 34.6 Red Cell Distribution Width 13.2 Platelet Count 311 Mean Platelet Volume 8.0 Neutrophils (%) (Auto) 76.8 Lymphocytes (%) (Auto) 6.1 Monocytes (%) (Auto) 9.4 Eosinophils (%) (Auto) 7.4 Basophils (%) (Auto) 0.3 Neutrophils # (Auto) 8.6 Lymphocytes # (Auto) 0.7 Monocytes # (Auto) 1.1 Eosinophils # (Auto) 0.8 Basophils # (Auto) 0.0 CBC Comment DIFF FINAL Differential Comment Blood Urea Nitrogen 4 Creatinine 0.96 Random Glucose 90 Calcium Level 8.4 Sodium Level 137 Potassium Level 4.0 Chloride Level 103 Carbon Dioxide Level 25.7 Anion Gap 8 Estimat Glomerular Filtration Rate 91 Narrative Exam right groin with induration, no abscess A/P Assessment and Plan right groin swelling r/o abscess PLAN will obtain recheck of US of right groin abx pain control ok for restart diet Mac Morton MD May 18, 2017 16:14
[2017-05-18] MEDS: KETOROLAC TROMETHAMINE 10 MG TAB PO SCH ×2 (16:21→20:21)
--- NOTE | 2017-05-18 17:49 | RADRPT ---
EXAM DATE/TIME: 05/18/2017 17:02 [place] COMPARISON: ULTRASOUND SOFT TISSUE, May 15, 2017, 9:13. INDICATIONS : Abscess. MEDICAL HISTORY : Mass right groin. SURGICAL HISTORY : None. ENCOUNTER: Subsequent ACUITY: 1 week PAIN SCORE: 5/10 LOCATION: Right groin. AREA EVALUATED: Right groin/right inguinal canal. FINDINGS: MASSES: None. FLUID COLLECTIONS: There is a slightly heterogeneous collection in the right groin measuring 3.6 x 1.8 x 2.3 cm with ass ociated regional hyperemia OTHER: Negative. CONCLUSION: 1. 3.6 x 1.8 x 2.3 cm heterogeneous right inguinal collection consistent with abscess, as clinically questioned. Josiah Yusuf MD on May 18, 2017 at 17:44 Board Certified Radiologist. This report was verified electronically.
[2017-05-18 20:00] VITALS: BP 163/72; PULSE 87; RESP 20; TEMP 99.9; O2SAT 98
[2017-05-19] VITALS (7 sets, daily range): BP systolic 114–142; BP diastolic 57–84; PULSE 59–104; RESP 16–20; TEMP 97.2–99.7; O2SAT 93–98
[2017-05-19] MEDS: KETOROLAC TROMETHAMINE 10 MG TAB PO SCH ×4 (03:09→21:00)
[2017-05-19] MEDS: PIPERACIL-TAZO 4.5 GM PREMIX 100 ML IV SCH ×4 (03:09→21:00)
[2017-05-19] MEDS: HYDROmorphone HCL 4 MG TAB PO PRN ×3 (03:09→13:29)
[2017-05-19] MEDS: VANCOMYCIN INJ 2,500 MG in SODIUM CHLORID 0.9% 500 ML INJ 500 ML IV SCH ×2 (03:10→14:58)
[2017-05-19] MEDS ORDERED: CHLORHEXIDINE GLUCONATE 2 % 1 PACK (2 CLOTHS) TOPICAL PRN (03:15)
[2017-05-19] MEDS ORDERED: LACTATED RINGER'S 1000 ML IV PRN (03:15)
[2017-05-19] MEDS ORDERED: POVIDONE IODINE 5% (ANTISEPSIS KIT) 4 APPLICATIONS EACH NARE PRN (03:15)
[2017-05-19] MEDS ORDERED: SODIUM CHLORID 0.9% 500 ML IV PRN (03:15)
[2017-05-19] MEDS ORDERED: BUPIVACAINE/EPINEPHRINE 0.5% PF 30 ML VIAL ONE (07:20)
--- NOTE | 2017-05-19 08:03 | HHI.PR ---
Immediate Post Op Note Procedure Date: May 19, 2017 Pre Op Diagnosis: right groin abscess Post Op Diagnosis: same Surgeon: Mac Morton MD Lining Machine Tender(s): bobby Procedure: I and D right groin abscess with vac placement Findings: pus Complications: none Specimen(s) removed: purulent drainage Estimated blood loss: 25cc Anesthesia: General Drains: Hemovac Patient to: PACU Patient Condition: Good Mac Morton MD May 19, 2017 08:03
--- NOTE | 2017-05-19 08:39 | MP ---
cc: YON MORTON MD DATE OF SURGERY: 05/19/2017 PREOPERATIVE DIAGNOSIS Right groin abscess. POSTOPERATIVE DIAGNOSIS Right groin abscess. PROCEDURE PERFORMED Incision and drainage of right groin abscess with VAC placement. SURGEON Dr. Yon Morton. VESSEL ENGINEER Naty. ANESTHESIA General endotracheal. IV FLUIDS See anesthesia sheet. ESTIMATED BLOOD LOSS [address] [facility]. COMPLICATIONS None. WOUND CLASSIFICATION Contaminated, dirty. SPECIMEN Purulent drainage sent for culture. FINDINGS Thick purulent pus cavity. INDICATION The patient is a 31-year-old male who presents with acute onset of bilateral groin pain. He had spontaneous drainage of a left groin abscess and had further development of a right groin abscess. The abscess continued to get worse, initially started as cellulitis and congealed into a pocket of pus therefore decision made for incision and drainage. DETAILS OF PROCEDURE The patient was taken to the operating suite, placed in supine position, prepped and draped in the usual sterile fashion after induction of general endotracheal anesthesia. A brief timeout was done stating correct patient, procedure, surgical site, and all were in agreement with this. Attention was first directed to the right groin where a longitudinal 2.5 cm incision was made with a 15 blade. Further dissection was with Bovie electrocautery, finger interdigitation and a hemostat in order to enter the pus pocket. There was noted to be a significant amount of purulent material that was extruded. Cultures were sent. Irrigation was done to the pocket with multiple aliquots of normal saline. Hemostasis was obtained. An appropriate size VAC sponge was obtained and cut to size and placed within the wound cavity. A plastic drape was then placed. A bridging technique was done to displace the tract pad for better ergonomics. The VAC was hooked up with a good seal. No intraoperative complications. All lap and instrument counts were correct at the end of the procedure. The patient was extubated and taken to PACU. MD KARINA Dooley/SCOTT /8:04 AM /8:27 AM
[2017-05-19] MEDS ORDERED: *morphine SULFATE 8 MG/ML PERIprocedure ONLY ONE ×2 (08:44→08:53)
[2017-05-19] MEDS: SODIUM CHLORIDE 0.9% FLUSH 10 ML FLUSH IV FLUSH SCH ×2 (09:00→21:00)
[2017-05-19] MEDS ORDERED: DO NOT ADM ANY ANTICOAGULANT DRUGS PRN (09:15)
[2017-05-19] MEDS: HYDROmorphone HCL PF 1 MG/ML VIAL IV PUSH PRN ×3 (09:29→21:21)
--- NOTE | 2017-05-19 09:31 | HHI.PR ---
Subjective Remarks in no acute distress. but complaining of pain to the right groin. wound vac in place. d/w the RN and no acute issues over night. Objective Vitals Vital Signs Date Time Temp Pulse Resp B/P (MAP) Pulse Ox O2 Delivery O2 Flow Rate FiO2 05/19/17 09:00 99.5 93 19 109/55 (73) 97 Nasal Cannula 3 05/19/17 08:45 90 17 120/59 (79) 93 Nasal Cannula 3 05/19/17 08:30 97 20 121/58 (79) 93 Nasal Cannula 3 05/19/17 08:15 95 20 121/57 (78) 98 Nasal Cannula 3 05/19/17 08:11 99.8 104 19 136/63 (87) 93 Nasal Cannula 3 05/19/17 04:00 98.0 85 20 114/57 (76) 98 05/19/17 00:00 97.2 59 18 142/84 (103) 95 05/18/17 20:00 99.9 87 20 163/72 (102) 98 05/18/17 16:00 99.6 92 16 132/76 (94) 96 05/18/17 12:00 98.5 91 16 130/64 (86) 95 I/O 05/18/17 05/18/17 05/18/17 05/19/17 05/19/17 05/19/17 07:00 15:00 23:00 07:00 15:00 23:00 Intake Total 625 ml 200 ml 600 ml Output Total 6 ml 25 ml Balance 625 ml 200 ml -6 ml 575 ml IV Total 625 ml 200 ml 600 ml Output Urine Total 6 ml Estimated Blood Loss 25 ml # Voids 5 Result Diagram: 05/18/17 1025 05/18/17 1025 Imaging Last Impressions Soft Tissue Ultrasound 05/18/17 0000 Signed Impressions: Service Date/Time: Thursday, May 18, 2017 17:02 - CONCLUSION: 1. 3.6 x 1.8 x 2.3 cm heterogeneous right inguinal collection consistent with abscess, as clinically questioned. Josiah Yusuf MD Objective Remarks GENERAL: This is a well-nourished, well-developed patient, in no apparent distress. CARDIOVASCULAR: Regular rate and regular rhythm without murmurs, gallops, or rubs. RESPIRATORY: Clear to auscultation. Breath sounds equal bilaterally. No wheezes , rales, or rhonchi. GASTROINTESTINAL: Abdomen soft, non-tender, nondistended. Normal, active bowel sounds MUSCULOSKELETAL: Extremities without clubbing, cyanosis, or edema. NEURO: Alert & Oriented x4 to person, place, time, situation. Moves all ext x4 skin; wound vac in place in right groin. Procedures I/D of the right groin abscess- wound vac placement. Medications and IVs Current Medications Sodium Chloride (NS Flush) 2 ml UNSCH PRN IV FLUSH FLUSH AFTER USING IV ACCESS ; Start 05/14/17 at 20:45 Sodium Chloride (NS Flush) 2 ml BID IV FLUSH Last administered on 05/19/17 09: 00; Start 05/14/17 at 21:00 Naloxone HCl (Narcan Inj) 0.4 mg UNSCH PRN IV PUSH SEE LABEL COMMENTS; Start 05/14/17 at 20:45 Pharmacy Profile Note 0 ml @ 0 mls/hr UNSCH OTHER ; Start 05/14/17 at 21:00; Stop 05/17/17 at 08:30; Status DC Piperacillin Sod/ Tazobactam Sod 100 ml @ 200 mls/hr Q6H IV Last administered on 05/19/17 08:50; Start 05/15/17 at 02:00 Vancomycin HCl 2500 mg/Sodium Chloride 525 ml @ 250 mls/hr ONCE ONCE IV Last administered on 05/15/17 02:42; Start 05/15/17 at 03:00; Stop 05/15/17 at 05 :05; Status DC Heparin Sodium (Porcine) (Heparin Inj) 5,000 units Q12HR SQ Last administered on 05/18/17 20:22; Start 05/15/17 at 09:00; Stop 05/18/17 at 21:04; Status DC Vancomycin HCl 2500 mg/Sodium Chloride 525 ml @ 250 mls/hr Q12H IV Last administered on 05/16/17 23:55; Start 05/15/17 at 12:00; Stop 05/17/17 at 08: 30; Status DC Miscellaneous Information SPECIFIC LAB TO BE DRAWN:VANCOMYCIN TROUGH DATE TO... ONCE ONCE .XX ; Start 05/16/17 at 11:45; Stop 05/16/17 at 11:46; Status DC Acetaminophen (Tylenol) 650 mg Q4H PRN PO PAIN SCALE 1 TO 3/fever; Start 05/15 at 17:15 Acetaminophen/ Hydrocodone Bitart ([place] 5-325 Mg) 1 tab Q4H PRN PO PAIN SCALE 4 TO 7 Last administered on 05/17/17 14:28; Start 05/15/17 at 17:15 Acetaminophen/ Hydrocodone Bitart ([place] 10-325 Mg) 1 tab Q4H PRN PO PAIN SCALE 8 TO 10 Last administered on 05/16/17 04:14; Start 05/15/17 at 17:15; Stop 05/16/17 at 12:07; Status DC Sodium Chloride 1,000 ml @ 100 mls/hr Q10H IV Last administered on 05/16/17 09:30; Start 05/16/17 at 09:30; Stop 05/17/17 at 11:04; Status DC Hydromorphone HCl (Dilaudid Pf Inj) 1 mg ONCE ONCE IV PUSH Last administered on 05/16/17 12:26; Start 05/16/17 at 12:15; Stop 05/16/17 at 12:16; Status DC Hydromorphone HCl (Dilaudid Pf Inj) 1 mg DAILY PRN IV PUSH WOUND CARE; Start 05/16/17 at 12:15 Hydromorphone HCl (Dilaudid) 4 mg Q3H PRN PO PAIN SCALE 8 TO 10 Last administered on 05/19/17 06:32; Start 05/16/17 at 15:00 Vancomycin HCl 2500 mg/Sodium Chloride 275 ml @ 262.5 mls/ hr Q12H IV ; Start 05/17/17 at 14:00; Stop 05/17/17 at 14:00; Status DC Pharmacy Profile Note 0 ml @ 0 mls/hr UNSCH PRN OTHER ADJUST FOR CREATININE CLRNCE; Start 05/17/17 at 10:45 Vancomycin HCl 2500 mg/Sodium Chloride 525 ml @ 250 mls/hr Q12H IV Last administered on 05/19/17 03:10; Start 05/17/17 at 14:00 Miscellaneous Information SPECIFIC LAB TO BE ... ONCE ONCE .XX ; Start 05/19 at 13:45; Stop 05/19/17 at 13:46 Ketorolac Tromethamine (Toradol) 10 mg Q6H PO Last administered on 05/19/17 03 :09; Start 05/18/17 at 15:00; Stop 05/20/17 at 14:59 Lactated Ringer's 1,000 ml @ 30 mls/hr Q24H PRN IV SEE LABEL COMMENTS; Start 05/19/17 at 03:15; Stop 05/22/17 at 03:14 Sodium Chloride 500 ml @ 30 mls/hr [id number] PRN IV SEE LABEL COMMENTS; Start at 03:15; Stop 05/22/17 at 03:14 Povidone Iodine (Betadine 5% Antisepsis Kit) 1 applic CRA OFFICER PRN EACH NARE SEE LABEL COMMENTS; Start 05/19/17 at 03:15; Stop 05/22/17 at 03:14 Chlorhexidine Gluconate (Chlorhexidine 2% Cloth) 3 pack CRA OFFICER PRN TOPICAL SEE LABEL COMMENTS; Start 05/19/17 at 03:15; Stop 05/22/17 at 03:14 Bupivacaine HCl/ Epinephrine Bitart (Sensorcaine-Epinephrine Pf 0.5% Inj) 30 ml STK-MED ONCE .ROUTE Last administered on 05/19/17 07:42; Start 05/19/17 at 07: 20; Stop 05/19/17 at 07:21; Status DC Morphine Sulfate (*morphine INJ PERIprocedure ONLY) 8 mg STK-MED ONCE .ROUTE Last administered on 05/19/17 08:44; Start 05/19/17 at 08:44; Stop 05/19/17 at 08:45; Status DC Morphine Sulfate (*morphine INJ PERIprocedure ONLY) 8 mg STK-MED ONCE .ROUTE Last administered on 05/19/17 08:53; Start 05/19/17 at 08:53; Stop 05/19/17 at 08:54; Status DC Miscellaneous Information ALL NURSING DEPARTME... UNSCH PRN .XX SEE LABEL COMMENTS; Start 05/19/17 at 09:15; Stop 05/20/17 at 09:14 A/P Problem List: (1) Cellulitis of groin, right ICD Code: L03.314 - Cellulitis of groin (2) Sepsis ICD Code: A41.9 - Sepsis, unspecified organism (3) History of MRSA infection ICD Code: Z86.14 - Personal history of Methicillin resistant Staphylococcus aureus infection (4) Tobacco abuse ICD Code: Z72.0 - Tobacco use Assessment and Plan A/P 1. Cellulitis / absces of right groin/inguinal area - s/p I/D and wound vac placement- continue IV antibiotics and pain control. follow the cultures. surgery following. 2. Morbid Obesity strongly recommended diet and exercise as outpatient 3. Tobacco dependence strongly recommended to stop smoking. Keaton Foster MD May 19, 2017 09:31
[2017-05-19] MEDS ORDERED: PHARMACY ORDERED LAB ONE (13:45)
[2017-05-19 15:40] LABS: VANCOMYCIN TROUGH 24.3 MCG/ML (5.0-10.0)
[2017-05-20 00:49] VITALS: BP 141/74; PULSE 80; RESP 18; TEMP 100.3; O2SAT 98
[2017-05-20] MEDS: PIPERACIL-TAZO 4.5 GM PREMIX 100 ML IV SCH ×3 (01:25→13:55)
[2017-05-20] MEDS: KETOROLAC TROMETHAMINE 10 MG TAB PO SCH ×2 (01:26→08:04)
[2017-05-20] MEDS: HYDROmorphone HCL PF 1 MG/ML VIAL IV PUSH PRN ×5 (01:26→20:40)
[2017-05-20] MEDS: SODIUM CHLORIDE 0.9% FLUSH 10 ML FLUSH IV FLUSH SCH ×2 (08:04→20:40)
[2017-05-20 08:32] VITALS: BP 146/57; PULSE 99; RESP 18; TEMP 99.4; O2SAT 97
--- NOTE | 2017-05-20 09:02 | HHI.PR ---
Subjective Remarks f/u; abscess right groin in no acute distress. pain slightly better today. Tmax 100.3. Objective Vitals Vital Signs Date Time Temp Pulse Resp B/P (MAP) Pulse Ox O2 Delivery O2 Flow Rate FiO2 05/20/17 08:32 99.4 99 18 146/57 (86) 97 05/20/17 00:49 100.3 80 18 141/74 (96) 98 05/19/17 20:00 98.9 85 16 135/66 (89) 98 05/19/17 16:00 98.3 71 16 134/68 (90) 98 05/19/17 12:00 99.7 90 18 133/60 (84) 97 05/19/17 09:45 98.5 104 19 136/73 (94) 93 05/19/17 09:00 99.5 93 19 109/55 (73) 97 Nasal Cannula 3 I/O 05/19/17 05/19/17 05/19/17 05/20/17 05/20/17 05/20/17 07:00 15:00 23:00 07:00 15:00 23:00 Intake Total 2760 ml 500 ml 100 ml 240 ml Output Total 6 ml 25 ml Balance -6 ml 2735 ml 500 ml 100 ml 240 ml Intake Oral 1760 ml 240 ml IV Total 1000 ml 500 ml 100 ml Output Urine Total 6 ml Estimated Blood Loss 25 ml # Voids 5 Result Diagram: 05/18/17 1025 05/20/17 0630 Imaging Last Impressions Soft Tissue Ultrasound 05/18/17 0000 Signed Impressions: Service Date/Time: Thursday, May 18, 2017 17:02 - CONCLUSION: 1. 3.6 x 1.8 x 2.3 cm heterogeneous right inguinal collection consistent with abscess, as clinically questioned. Josiah Yusuf MD Objective Remarks GENERAL: This is a well-nourished, well-developed patient, in no apparent distress. CARDIOVASCULAR: Regular rate and regular rhythm without murmurs, gallops, or rubs. RESPIRATORY: Clear to auscultation. Breath sounds equal bilaterally. No wheezes , rales, or rhonchi. GASTROINTESTINAL: Abdomen soft, non-tender, nondistended. Normal, active bowel sounds MUSCULOSKELETAL: Extremities without clubbing, cyanosis, or edema. NEURO: Alert & Oriented x4 to person, place, time, situation. Moves all ext x4 skin; wound vac in place in right groin. Procedures I/D of the right groin abscess- wound vac placement. Medications and IVs Current Medications Sodium Chloride (NS Flush) 2 ml UNSCH PRN IV FLUSH FLUSH AFTER USING IV ACCESS ; Start 05/14/17 at 20:45 Sodium Chloride (NS Flush) 2 ml BID IV FLUSH Last administered on 05/20/17 08: 04; Start 05/14/17 at 21:00 Naloxone HCl (Narcan Inj) 0.4 mg UNSCH PRN IV PUSH SEE LABEL COMMENTS; Start 05/14/17 at 20:45 Pharmacy Profile Note 0 ml @ 0 mls/hr UNSCH OTHER ; Start 05/14/17 at 21:00; Stop 05/17/17 at 08:30; Status DC Piperacillin Sod/ Tazobactam Sod 100 ml @ 200 mls/hr Q6H IV Last administered on 05/20/17 08:04; Start 05/15/17 at 02:00 Vancomycin HCl 2500 mg/Sodium Chloride 525 ml @ 250 mls/hr ONCE ONCE IV Last administered on 05/15/17 02:42; Start 05/15/17 at 03:00; Stop 05/15/17 at 05 :05; Status DC Heparin Sodium (Porcine) (Heparin Inj) 5,000 units Q12HR SQ Last administered on 05/18/17 20:22; Start 05/15/17 at 09:00; Stop 05/18/17 at 21:04; Status DC Vancomycin HCl 2500 mg/Sodium Chloride 525 ml @ 250 mls/hr Q12H IV Last administered on 05/16/17 23:55; Start 05/15/17 at 12:00; Stop 05/17/17 at 08: 30; Status DC Miscellaneous Information SPECIFIC LAB TO BE DRAWN:VANCOMYCIN TROUGH DATE TO... ONCE ONCE .XX ; Start 05/16/17 at 11:45; Stop 05/16/17 at 11:46; Status DC Acetaminophen (Tylenol) 650 mg Q4H PRN PO PAIN SCALE 1 TO 3/fever; Start 05/15 at 17:15 Acetaminophen/ Hydrocodone Bitart ([place] 5-325 Mg) 1 tab Q4H PRN PO PAIN SCALE 4 TO 7 Last administered on 05/17/17 14:28; Start 05/15/17 at 17:15 Acetaminophen/ Hydrocodone Bitart ([place] 10-325 Mg) 1 tab Q4H PRN PO PAIN SCALE 8 TO 10 Last administered on 05/16/17 04:14; Start 05/15/17 at 17:15; Stop 05/16/17 at 12:07; Status DC Sodium Chloride 1,000 ml @ 100 mls/hr Q10H IV Last administered on 05/16/17 09:30; Start 05/16/17 at 09:30; Stop 05/17/17 at 11:04; Status DC Hydromorphone HCl (Dilaudid Pf Inj) 1 mg ONCE ONCE IV PUSH Last administered on 05/16/17 12:26; Start 05/16/17 at 12:15; Stop 05/16/17 at 12:16; Status DC Hydromorphone HCl (Dilaudid Pf Inj) 1 mg DAILY PRN IV PUSH WOUND CARE Last administered on 05/19/17 09:29; Start 05/16/17 at 12:15 Hydromorphone HCl (Dilaudid) 4 mg Q3H PRN PO PAIN SCALE 8 TO 10 Last administered on 05/19/17 13:29; Start 05/16/17 at 15:00; Stop 05/19/17 at 13:57 ; Status DC Vancomycin HCl 2500 mg/Sodium Chloride 275 ml @ 262.5 mls/ hr Q12H IV ; Start 05/17/17 at 14:00; Stop 05/17/17 at 14:00; Status DC Pharmacy Profile Note 0 ml @ 0 mls/hr UNSCH PRN OTHER ADJUST FOR CREATININE CLRNCE; Start 05/17/17 at 10:45 Vancomycin HCl 2500 mg/Sodium Chloride 525 ml @ 250 mls/hr Q12H IV Last administered on 05/19/17 14:58; Start 05/17/17 at 14:00; Stop 05/19/17 at 16:43 ; Status DC Miscellaneous Information SPECIFIC LAB TO BE LUCAS... ONCE ONCE .XX Last administered on 05/19/17 13:45; Start 05/19/17 at 13:45; Stop 05/19/17 at 13:46 ; Status DC Ketorolac Tromethamine (Toradol) 10 mg Q6H PO Last administered on 05/20/17 08 :04; Start 05/18/17 at 15:00; Stop 05/20/17 at 14:59 Lactated Ringer's 1,000 ml @ 30 mls/hr Q24H PRN IV SEE LABEL COMMENTS; Start 05/19/17 at 03:15; Stop 05/22/17 at 03:14 Sodium Chloride 500 ml @ 30 mls/hr [id number] PRN IV SEE LABEL COMMENTS; Start at 03:15; Stop 05/22/17 at 03:14 Povidone Iodine (Betadine 5% Antisepsis Kit) 1 applic REGISTERED ACCOUNT ADMINISTRATOR PRN EACH NARE SEE LABEL COMMENTS; Start 05/19/17 at 03:15; Stop 05/22/17 at 03:14 Chlorhexidine Gluconate (Chlorhexidine 2% Cloth) 3 pack REGISTERED ACCOUNT ADMINISTRATOR PRN TOPICAL SEE LABEL COMMENTS; Start 05/19/17 at 03:15; Stop 05/22/17 at 03:14 Bupivacaine HCl/ Epinephrine Bitart (Sensorcaine-Epinephrine Pf 0.5% Inj) 30 ml STK-MED ONCE .ROUTE Last administered on 05/19/17 07:42; Start 05/19/17 at 07: 20; Stop 05/19/17 at 07:21; Status DC Morphine Sulfate (*morphine INJ PERIprocedure ONLY) 8 mg STK-MED ONCE .ROUTE Last administered on 05/19/17 08:44; Start 05/19/17 at 08:44; Stop 05/19/17 at 08:45; Status DC Morphine Sulfate (*morphine INJ PERIprocedure ONLY) 8 mg STK-MED ONCE .ROUTE Last administered on 05/19/17 08:53; Start 05/19/17 at 08:53; Stop 05/19/17 at 08:54; Status DC Miscellaneous Information ALL NURSING DEPARTME... UNSCH PRN .XX SEE LABEL COMMENTS; Start 05/19/17 at 09:15; Stop 05/20/17 at 09:14 Hydromorphone HCl (Dilaudid Pf Inj) 1 mg Q4H PRN IV PUSH PAIN 8-10 Last administered on 05/20/17 06:56; Start 05/19/17 at 14:00 A/P Problem List: (1) Cellulitis of groin, right ICD Code: L03.314 - Cellulitis of groin (2) Sepsis ICD Code: A41.9 - Sepsis, unspecified organism (3) History of MRSA infection ICD Code: Z86.14 - Personal history of Methicillin resistant Staphylococcus aureus infection (4) Tobacco abuse ICD Code: Z72.0 - Tobacco use Assessment and Plan A/P 1. Cellulitis / absces of right groin/inguinal area - s/p I/D and wound vac placement- wound culture with MRSA- hold Vanco due to acute kidney injury; will consult ID to assist with antibiotic therapy. continue pain control. surgery following. 2. acute kidney injury stop Vancomycin and Toradol- start on IV fluid- monitor I/O and renal function closely. check UA and urine sodium- will consider nephrology evaluation if renal function doesn't improve. 3. Morbid Obesity strongly recommended diet and exercise as outpatient 4. Tobacco dependence strongly recommended to stop smoking. Keaton Foster MD May 20, 2017 09:02
[2017-05-20] MEDS: SODIUM CHLOR 0.9% 1000 ML INJ 1,000 ML IV SCH ×2 (09:15→16:28)
[2017-05-20 11:03] LABS: BLOOD, URINE NEG (NEG); GLUCOSE,URINE NEG (NEG); KETONE, URINE NEG (NEG); NITRITE,URINE NEG (NEG); PH, URINE 5.5 (5.0-8.5); URINE COLOR LIGHT-YELLOW (YELLW/STRAW)
[2017-05-20 11:04] LABS: COMMENT (UR) CULT NOT INDICATED; CULTURE IF INDICATED CULT NOT INDICATED
[2017-05-20 12:00] VITALS: BP 125/60; PULSE 82; RESP 18; TEMP 98.8; O2SAT 98
--- NOTE | 2017-05-20 14:22 | HHI.PR ---
Subjective Subjective Notes Resting in bed No issues Pain better Objective Vitals/I&O Vital Signs Date Time Temp Pulse Resp B/P (MAP) Pulse Ox O2 Delivery O2 Flow Rate FiO2 05/20/17 12:00 98.8 82 18 125/60 (81) 98 05/19/17 09:00 Nasal Cannula 3 Labs Laboratory Tests Test 05/19/17 14:30 05/20/17 06:30 05/20/17 10:41 Creatinine 2.00 2.21 Estimat Glomerular Filtration Rate 39 35 Vancomycin Level Trough 24.3 Random Vancomycin Level 21.8 Urine Color LIGHT-YELLOW Urine Turbidity CLEAR Urine pH 5.5 Urine Specific [place] 1.007 Urine Protein NEG Urine Glucose (UA) NEG Urine Ketones NEG Urine Occult Blood NEG Urine Nitrite NEG Urine Bilirubin NEG Urine Urobilinogen LESS THAN 2.0 Urine Leukocyte Esterase NEG Urine RBC LESS THAN 1 Urine WBC LESS THAN 1 Microscopic Urinalysis Comment CULT NOT INDICATED Urine Random Sodium 20 Date/Time Source Procedure Growth Status 05/19/17 07:57 Wound Groin Fungal Smear - Final NO FUNGAL ELEMENTS SEEN. Resulted 05/19/17 07:57 Wound Groin Fungal Culture Pending Resulted Cardiovascular: Regular Lungs: Clear Abdomen: Non-distended, Non-tender Extremities: No edema, Other (see below ) Narrative Exam RIGHT groin Wound Vac in place with good seal A/P Assessment and Plan 31 year old male POD1 I&D of RIGHT groin abscess with Wound Vac placement -Regular diet -Continue antibiotics -Plan to remove Wound Vac Friday vs and transition to wet to dry dressings -OOB as tolerated Attending Statement patient seen at bedside vac to be changed 2-3 days reg diet abx Attestation The exam, history, and the medical decision-making described in the above note were completed with the assistance of the mid-level provider. I reviewed and agree with the findings presented. I attest that I had a [id number] encounter with the patient on the same day, and personally performed and documented my assessment and findings in the medical record. Radha Boles May 20, 2017 14:22 Mac Morton MD May 26, 2017 21:12
[2017-05-20 16:00] VITALS: BP 150/70; PULSE 101; RESP 18; TEMP 98.6; O2SAT 96
--- NOTE | 2017-05-20 16:05 | MB ---
cc: [facility] DATE OF CONSULTATION: 05/20/2017 REQUESTING PHYSICIAN: Dr. Harrison. REASON FOR CONSULTATION: Please evaluate for right groin abscess. HISTORY OF PRESENT ILLNESS: This is a 31-year-old white male who presented to the emergency department at [facility] for evaluation of right groin area swelling and pain along with fever. The patient was found to have an abscess at the right groin. He initially had a boil at the left upper mid thigh and he "popped it", and it drained purulent fluid and then he developed a lump in the right groin which also became swollen and he was also having chills and diaphoresis. Culture was taken on 05/14 prior to him being admitted and the culture came back with MRSA. This organism is resistant to clindamycin. The patient was evaluated by surgery. A CT scan was performed and it showed right inguinal cellulitis with no abscess. An ultrasound of the right groin showed a heterogeneous right inguinal collection consistent with abscess. He underwent incision and drainage of the abscess yesterday, another culture was taken and it came back with MRSA. The patient tells me that he feels nauseated currently. He states that he had some chills earlier today as well. PAST MEDICAL HISTORY Past medical history significant for right thumb infection in 2003 due to MRSA. ALLERGIES NO KNOWN DRUG ALLERGIES. MEDICATIONS: Vancomycin dose was given on 07/20. 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 He smokes half-a-pack of cigarettes a day. No alcohol use. No illicit drugs. FAMILY HISTORY Noncontributory. REVIEW OF SYSTEMS Pertinent mentioned above in history of present illness. PHYSICAL EXAMINATION: IN GENERAL: Morbidly obese male who is in no acute distress. Awake and alert and oriented. VITAL SIGNS: Temperature 98.8, BP 125/60, respirations 18, Heart rate 82. HEAD, EYES, EARS, NOSE, AND THROAT: Head is atraumatic. Extraocular movements grossly intact, pupils reactive to light without icterus. Oropharynx moist mucosa without lesions. NECK: Supple without adenopathy. LUNGS: Clear to auscultation. HEART: Regular S1-S2 without murmurs, rubs or gallops. ABDOMEN: Bowel sounds present, soft, nontender. RECTUM: Rectal: Not performed. GROIN: The right groin has a vacuum device exiting the groin wound and it has serous drainage. EXTREMITIES: No clubbing, cyanosis or edema. SKIN: No rash. NEUROLOGIC: Nonfocal. PSYCHIATRIC: The patient calm and cooperative. LABORATORY DATA WBC 12, platelet 311, hemoglobin 12.1, creatinine 2.21, estimated GFR 35. Prior creatinine on 05/16 with 0.73 and estimated GFR was 125. IMPRESSION Right groin abscess due to MRSA. Acute kidney disease. Very likely medication associated. RECOMMENDATIONS 1. Begin treatment with daptomycin adjusted dose for the renal function 2. Avoid vancomycin 3. Discontinue piperacillin / tazobactam 4. Monitor clinical response and follow temperature and white blood cell count. Thank you this consultation. The patient's progress will be monitored and further recommendations will be made upon followup if necessary. Segun Yang MD FD/king /1:55 PM /3:08 PM MTDVivian
[2017-05-20] MEDS: DAPTOmycin INJ 600 MG in SODIUM CHLORIDE 0.9% INJ 100 ML IV SCH (16:27)
[2017-05-20] MEDS ORDERED: ONDANSETRON HCL 4 MG/2 ML VIAL IV PUSH PRN (17:30)
[2017-05-20] MEDS: ACETAMINOPHEN/HYDROcodone 325 MG/5 MG TAB PO PRN (19:36)
[2017-05-20 19:37] VITALS: BP 136/64; PULSE 100; RESP 20; TEMP 99.4; O2SAT 97
[2017-05-21] MEDS: HYDROmorphone HCL PF 1 MG/ML VIAL IV PUSH PRN ×6 (00:35→20:22)
[2017-05-21 00:46] VITALS: BP 128/64; PULSE 92; RESP 24; TEMP 99.9; O2SAT 100
[2017-05-21] MEDS: ACETAMINOPHEN/HYDROcodone 325 MG/5 MG TAB PO PRN (01:47)
[2017-05-21] MEDS ORDERED: diphenhydrAMINE HCL 50 MG/ML VIAL IV PUSH ONE ×3 (03:00→23:15)
[2017-05-21] MEDS: SODIUM CHLOR 0.9% 1000 ML INJ 1,000 ML IV SCH ×3 (03:18→15:15)
[2017-05-21 04:00] VITALS: BP 130/60; PULSE 83; RESP 20; TEMP 98.3; O2SAT 98
[2017-05-21 08:00] VITALS: BP 124/62; PULSE 82; RESP 20; TEMP 98.1; O2SAT 98
[2017-05-21] MEDS: SODIUM CHLORIDE 0.9% FLUSH 10 ML FLUSH IV FLUSH SCH ×2 (08:15→20:22)
--- NOTE | 2017-05-21 10:13 | HHI.PR ---
Subjective Subjective Notes Resting in bed; No issues with Wound Vac overnight Ambulating in room Objective Vitals/I&O Vital Signs Date Time Temp Pulse Resp B/P (MAP) Pulse Ox O2 Delivery O2 Flow Rate FiO2 05/21/17 08:00 98.1 82 20 124/62 (82) 98 05/19/17 09:00 Nasal Cannula 3 Labs Laboratory Tests Test 05/20/17 10:41 Urine Color LIGHT-YELLOW Urine Turbidity CLEAR Urine pH 5.5 Urine Specific [place] 1.007 Urine Protein NEG Urine Glucose (UA) NEG Urine Ketones NEG Urine Occult Blood NEG Urine Nitrite NEG Urine Bilirubin NEG Urine Urobilinogen LESS THAN 2.0 Urine Leukocyte Esterase NEG Urine RBC LESS THAN 1 Urine WBC LESS THAN 1 Microscopic Urinalysis Comment CULT NOT INDICATED Urine Random Sodium 20 Date/Time Source Procedure Growth Status 05/19/17 07:57 Wound Groin Fungal Smear - Final NO FUNGAL ELEMENTS SEEN. Resulted 05/19/17 07:57 Wound Groin Fungal Culture Pending Resulted Cardiovascular: Regular Lungs: Clear Abdomen: Non-distended, Non-tender Extremities: No edema Narrative Exam RIGHT groin Wound Vac in place with good seal A/P Assessment and Plan 31 year old male POD2 I&D of RIGHT groin abscess with Wound Vac placement -Regular diet -Continue antibiotics -Plan to remove Wound Vac and transition to wet to dry dressings -OOB as tolerated -Discussed with Dr. Foster and PRISCILA Hudson Attending Statement patient seen at bedside vac with poor seal wound looks good remove vac wet to dry transition Attestation The exam, history, and the medical decision-making described in the above note were completed with the assistance of the mid-level provider. I reviewed and agree with the findings presented. I attest that I had a [id number] encounter with the patient on the same day, and personally performed and documented my assessment and findings in the medical record. Radha Boles May 21, 2017 10:13 Mac Morton MD May 27, 2017 04:52
[2017-05-21] MEDS ORDERED: ACETAMINOPHEN/HYDROcodone 325 MG/10 MG TAB PO PRN (10:15)
--- NOTE | 2017-05-21 10:16 | HHI.PR ---
Subjective Remarks in no acute distress. no fever. still with pain to the left groin. no other complaints. Objective Vitals Vital Signs Date Time Temp Pulse Resp B/P (MAP) Pulse Ox O2 Delivery O2 Flow Rate FiO2 05/21/17 04:00 98.3 83 20 130/60 (83) 98 05/21/17 00:46 99.9 92 24 128/64 (85) 100 05/20/17 19:37 99.4 100 20 136/64 (88) 97 05/20/17 16:00 98.6 101 18 150/70 (96) 96 05/20/17 12:00 98.8 82 18 125/60 (81) 98 I/O 05/20/17 05/20/17 05/20/17 05/21/17 05/21/17 05/21/17 07:00 15:00 23:00 07:00 15:00 23:00 Intake Total 100 ml 1040 ml 1497 ml 412 ml Output Total 1425 ml 1375 ml 300 ml Balance 100 ml -385 ml 122 ml 112 ml Intake Oral 840 ml 960 ml IV Total 100 ml 200 ml 537 ml 412 ml Output Urine Total 1425 ml 1375 ml 300 ml # Voids 5 # Bowel Movements 1 Result Diagram: 05/18/17 1025 05/20/17 0630 Imaging Last Impressions Soft Tissue Ultrasound 05/18/17 0000 Signed Impressions: Service Date/Time: Thursday, May 18, 2017 17:02 - CONCLUSION: 1. 3.6 x 1.8 x 2.3 cm heterogeneous right inguinal collection consistent with abscess, as clinically questioned. Josiah Yusuf MD Objective Remarks GENERAL: This is a well-nourished, well-developed patient, in no apparent distress. CARDIOVASCULAR: Regular rate and regular rhythm without murmurs, gallops, or rubs. RESPIRATORY: Clear to auscultation. Breath sounds equal bilaterally. No wheezes , rales, or rhonchi. GASTROINTESTINAL: Abdomen soft, non-tender, nondistended. Normal, active bowel sounds MUSCULOSKELETAL: Extremities without clubbing, cyanosis, or edema. NEURO: Alert & Oriented x4 to person, place, time, situation. Moves all ext x4 skin; wound vac in place in right groin. Procedures I/D of the right groin abscess- wound vac placement. Medications and IVs Current Medications Sodium Chloride (NS Flush) 2 ml UNSCH PRN IV FLUSH FLUSH AFTER USING IV ACCESS ; Start 05/14/17 at 20:45 Sodium Chloride (NS Flush) 2 ml BID IV FLUSH Last administered on 05/20/17 20: 40; Start 05/14/17 at 21:00 Naloxone HCl (Narcan Inj) 0.4 mg UNSCH PRN IV PUSH SEE LABEL COMMENTS; Start 05/14/17 at 20:45 Pharmacy Profile Note 0 ml @ 0 mls/hr UNSCH OTHER ; Start 05/14/17 at 21:00; Stop 05/17/17 at 08:30; Status DC Piperacillin Sod/ Tazobactam Sod 100 ml @ 200 mls/hr Q6H IV Last administered on 05/20/17 13:55; Start 05/15/17 at 02:00; Stop 05/20/17 at 14:09; Status DC Vancomycin HCl 2500 mg/Sodium Chloride 525 ml @ 250 mls/hr ONCE ONCE IV Last administered on 05/15/17 02:42; Start 05/15/17 at 03:00; Stop 05/15/17 at 05 :05; Status DC Heparin Sodium (Porcine) (Heparin Inj) 5,000 units Q12HR SQ Last administered on 05/18/17 20:22; Start 05/15/17 at 09:00; Stop 05/18/17 at 21:04; Status DC Vancomycin HCl 2500 mg/Sodium Chloride 525 ml @ 250 mls/hr Q12H IV Last administered on 05/16/17 23:55; Start 05/15/17 at 12:00; Stop 05/17/17 at 08: 30; Status DC Miscellaneous Information SPECIFIC LAB TO BE DRAWN:VANCOMYCIN TROUGH DATE TO... ONCE ONCE .XX ; Start 05/16/17 at 11:45; Stop 05/16/17 at 11:46; Status DC Acetaminophen (Tylenol) 650 mg Q4H PRN PO PAIN SCALE 1 TO 3/fever Last administered on 05/21/17 00:34; Start 05/15/17 at 17:15 Acetaminophen/ Hydrocodone Bitart ([place] 5-325 Mg) 1 tab Q4H PRN PO PAIN SCALE 4 TO 7 Last administered on 05/21/17 01:47; Start 05/15/17 at 17:15 Acetaminophen/ Hydrocodone Bitart ([place] 10-325 Mg) 1 tab Q4H PRN PO PAIN SCALE 8 TO 10 Last administered on 05/16/17 04:14; Start 05/15/17 at 17:15; Stop 05/16/17 at 12:07; Status DC Sodium Chloride 1,000 ml @ 100 mls/hr Q10H IV Last administered on 05/16/17 09:30; Start 05/16/17 at 09:30; Stop 05/17/17 at 11:04; Status DC Hydromorphone HCl (Dilaudid Pf Inj) 1 mg ONCE ONCE IV PUSH Last administered on 05/16/17 12:26; Start 05/16/17 at 12:15; Stop 05/16/17 at 12:16; Status DC Hydromorphone HCl (Dilaudid Pf Inj) 1 mg DAILY PRN IV PUSH WOUND CARE Last administered on 05/19/17 09:29; Start 05/16/17 at 12:15 Hydromorphone HCl (Dilaudid) 4 mg Q3H PRN PO PAIN SCALE 8 TO 10 Last administered on 05/19/17 13:29; Start 05/16/17 at 15:00; Stop 05/19/17 at 13:57 ; Status DC Vancomycin HCl 2500 mg/Sodium Chloride 275 ml @ 262.5 mls/ hr Q12H IV ; Start 05/17/17 at 14:00; Stop 05/17/17 at 14:00; Status DC Pharmacy Profile Note 0 ml @ 0 mls/hr UNSCH PRN OTHER ADJUST FOR CREATININE CLRNCE; Start 05/17/17 at 10:45; Stop 05/20/17 at 09:03; Status DC Vancomycin HCl 2500 mg/Sodium Chloride 525 ml @ 250 mls/hr Q12H IV Last administered on 05/19/17 14:58; Start 05/17/17 at 14:00; Stop 05/19/17 at 16:43 ; Status DC Miscellaneous Information SPECIFIC LAB TO BE LUCAS... ONCE ONCE .XX Last administered on 05/19/17 13:45; Start 05/19/17 at 13:45; Stop 05/19/17 at 13:46 ; Status DC Ketorolac Tromethamine (Toradol) 10 mg Q6H PO Last administered on 05/20/17 08 :04; Start 05/18/17 at 15:00; Stop 05/20/17 at 09:03; Status DC Lactated Ringer's 1,000 ml @ 30 mls/hr Q24H PRN IV SEE LABEL COMMENTS; Start 05/19/17 at 03:15; Stop 05/20/17 at 09:03; Status DC Sodium Chloride 500 ml @ 30 mls/hr [id number] PRN IV SEE LABEL COMMENTS; Start at 03:15; Stop 05/20/17 at 09:03; Status DC Povidone Iodine (Betadine 5% Antisepsis Kit) 1 applic BIOMEDICAL SERVICE ENGINEER PRN EACH NARE SEE LABEL COMMENTS; Start 05/19/17 at 03:15; Stop 05/22/17 at 03:14 Chlorhexidine Gluconate (Chlorhexidine 2% Cloth) 3 pack BIOMEDICAL SERVICE ENGINEER PRN TOPICAL SEE LABEL COMMENTS; Start 05/19/17 at 03:15; Stop 05/22/17 at 03:14 Bupivacaine HCl/ Epinephrine Bitart (Sensorcaine-Epinephrine Pf 0.5% Inj) 30 ml STK-MED ONCE .ROUTE Last administered on 05/19/17 07:42; Start 05/19/17 at 07: 20; Stop 05/19/17 at 07:21; Status DC Morphine Sulfate (*morphine INJ PERIprocedure ONLY) 8 mg STK-MED ONCE .ROUTE Last administered on 05/19/17 08:44; Start 05/19/17 at 08:44; Stop 05/19/17 at 08:45; Status DC Morphine Sulfate (*morphine INJ PERIprocedure ONLY) 8 mg STK-MED ONCE .ROUTE Last administered on 05/19/17 08:53; Start 05/19/17 at 08:53; Stop 05/19/17 at 08:54; Status DC Miscellaneous Information ALL NURSING DEPARTME... UNSCH PRN .XX SEE LABEL COMMENTS; Start 05/19/17 at 09:15; Stop 05/20/17 at 09:14; Status DC Hydromorphone HCl (Dilaudid Pf Inj) 1 mg Q4H PRN IV PUSH PAIN 8-10 Last administered on 05/21/17 09:03; Start 05/19/17 at 14:00 Sodium Chloride 1,000 ml @ 100 mls/hr Q10H IV Last administered on 05/21/17 03:18; Start 05/20/17 at 09:15 Daptomycin 600 mg/ Sodium Chloride 100 ml @ 200 mls/hr Q24H IV Last administered on 05/20/17 16:27; Start 05/20/17 at 15:00 Ondansetron HCl (Zofran Inj) 4 mg Q8HR PRN IV PUSH NAUSEA; Start 05/20/17 at 17 :30 Diphenhydramine HCl (Benadryl Inj) 25 mg ONCE ONCE IV PUSH Last administered on 05/21/17 02:52; Start 05/21/17 at 03:00; Stop 05/21/17 at 03:01; Status DC A/P Problem List: (1) Cellulitis of groin, right ICD Code: L03.314 - Cellulitis of groin (2) Sepsis ICD Code: A41.9 - Sepsis, unspecified organism (3) History of MRSA infection ICD Code: Z86.14 - Personal history of Methicillin resistant Staphylococcus aureus infection (4) Tobacco abuse ICD Code: Z72.0 - Tobacco use Assessment and Plan A/P 1. Cellulitis / absces of right groin/inguinal area - s/p I/D and wound vac placement- wound culture with MRSA- on Daptomycin. ID consult appreciated. continue pain control; gradual transition to po pain meds. surgery following; d/w the surgery today; plan for removing the wound vac tomorrow. 2. acute kidney injury stopped Vancomycin and Toradol- started on IV fluid- monitor I/O and renal function closely. 3. Morbid Obesity strongly recommended diet and exercise as outpatient 4. Tobacco dependence strongly recommended to stop smoking. Discharge Planning when cleared by surgery and ID- pending the renal function status. Keaton Foster MD May 21, 2017 10:15
[2017-05-21 12:00] VITALS: BP 129/70; PULSE 88; RESP 20; TEMP 98.8; O2SAT 98
[2017-05-21] MEDS: diphenhydrAMINE HCL 25 MG CAP PO PRN ×2 (12:45→21:21)
[2017-05-21] MEDS: ACETAMINOPHEN/HYDROcodone 325 MG/7.5 MG TAB PO PRN ×3 (12:45→21:21)
[2017-05-21 16:00] VITALS: BP 118/93; PULSE 76; RESP 20; TEMP 98.2; O2SAT 98
[2017-05-21 16:04] LABS: BICARBONATE 24.8 MEQ/L (21.0-32.0)
--- NOTE | 2017-05-21 16:09 | HHI.IDPN ---
Note Infectious Disease Note Patient notes pain in the r. groin. Vacuum device just removed. Itching. Afebrile. PAST MEDICAL HISTORY Past medical history significant for right thumb infection in 2004 due to MRSA. ALLERGIES NO KNOWN DRUG ALLERGIES. MEDICATIONS: Vancomycin dose was given on 07/20. Current Medications Medications (Trade) Dose Ordered Sig/Nelia Route PRN Reason Start Time Stop Time Status Last Admin Dose Admin Sodium Chloride (NS Flush) 2 ml UNSCH PRN IV FLUSH FLUSH AFTER USING IV ACCESS 05/14/17 20:45 Sodium Chloride (NS Flush) 2 ml BID IV FLUSH 05/14/17 21:00 05/20/17 20:40 Naloxone HCl (Narcan Inj) 0.4 mg UNSCH PRN IV PUSH SEE LABEL COMMENTS 05/14/17 20:45 Acetaminophen (Tylenol) 650 mg Q4H PRN PO PAIN SCALE 1 TO 3/fever 05/15/17 17:15 05/21/17 00:34 Hydromorphone HCl (Dilaudid Pf Inj) 1 mg DAILY PRN IV PUSH WOUND CARE 05/16/17 12:15 05/19/17 09:29 Povidone Iodine (Betadine 5% Antisepsis Kit) 1 applic FLOOR LAYER TILE PRN EACH NARE SEE LABEL COMMENTS 05/19/17 03:15 05/22/17 03:14 Chlorhexidine Gluconate (Chlorhexidine 2% Cloth) 3 pack FLOOR LAYER TILE PRN TOPICAL SEE LABEL COMMENTS 05/19/17 03:15 05/22/17 03:14 Sodium Chloride 1,000 ml @ 100 mls/hr Q10H IV 05/20/17 09:15 05/21/17 12:18 Daptomycin 600 mg/ Sodium Chloride 100 ml @ 200 mls/hr Q24H IV 05/20/17 15:00 05/20/17 16:27 Ondansetron HCl (Zofran Inj) 4 mg Q8HR PRN IV PUSH NAUSEA 05/20/17 17:30 Hydromorphone HCl (Dilaudid Pf Inj) 1 mg Q3HR PRN IV PUSH BREAKTHROUGH PAIN 05/21/17 11:15 05/21/17 15:49 Acetaminophen/ Hydrocodone Bitart ([place] 10-325 Mg) 1 tab Q4H PRN PO PAIN 4-7 05/21/17 10:15 Acetaminophen/ Hydrocodone Bitart ([place] 7.5-325 Mg) 2 tab Q4H PRN PO PAIN 8-10 05/21/17 10:15 05/21/17 12:45 Diphenhydramine HCl (Benadryl) 25 mg Q6H PRN PO ITCHING 05/21/17 12:45 05/21/17 12:45 OBJECTIVE: Vital Signs Date Time Temp Pulse Resp B/P (MAP) Pulse Ox O2 Delivery O2 Flow Rate FiO2 05/21/17 12:00 98.8 88 20 129/70 (89) 98 05/21/17 08:00 98.1 82 20 124/62 (82) 98 05/21/17 04:00 98.3 83 20 130/60 (83) 98 05/21/17 00:46 99.9 92 24 128/64 (85) 100 05/20/17 19:37 99.4 100 20 136/64 (88) 97 Laboratory Tests Test 05/20/17 06:30 05/21/17 14:45 Creatinine 2.21 MG/DL Estimat Glomerular Filtration Rate 35 ML/MIN Blood Urea Nitrogen 13 MG/DL Calcium Level 8.4 MG/DL Carbon Dioxide Level 24.8 MEQ/L Microbiology Date/Time Source Procedure Growth Status 05/19/17 07:57 Wound Groin Fungal Smear - Final NO FUNGAL ELEMENTS SEEN. Resulted 05/19/17 07:57 Wound Groin Fungal Culture Pending Resulted 05/19/17 07:57 Wound Groin Acid Fast Stain - Final NO ACID FAST BACILLI SEEN Resulted 05/19/17 07:57 Wound Groin Mycobacterial Culture Pending Resulted 05/19/17 07:57 Wound Groin Gram Stain - Final Complete 05/19/17 07:57 Wound Culture - Final S. Aureus Mrsa Complete PHYSICAL EXAMINATION: GENERAL: No acute distress. Awake and alert and oriented. HEAD, EYES, EARS, NOSE, AND THROAT: Extraocular movements grossly intact, pupils reactive to light without icterus. Oropharynx moist mucosa without lesions. NECK: Supple without adenopathy. LUNGS: Clear to auscultation. HEART: Regular S1-S2 without murmurs, rubs or gallops. ABDOMEN: Bowel sounds present, soft, nontender. GROIN: The right groin has a clean deep incision. EXTREMITIES: No clubbing, cyanosis or edema. SKIN: No rash. NEUROLOGIC: Nonfocal. PSYCHIATRIC: Calm and cooperative. IMPRESSION Right groin abscess due to MRSA. Acute kidney disease. Very likely medication associated. RECOMMENDATIONS 1. Continue Daptomycin 2. Avoid vancomycin. 3. Benadryl for itching. One dose iV ordered. 4. Monitor clinical response. 5. Anticipate discharge on PO abx in couple of days. Segun Yang MD May 21, 2017 16:09
[2017-05-21] MEDS: DAPTOmycin INJ 600 MG in SODIUM CHLORIDE 0.9% INJ 100 ML IV SCH (16:16)
[2017-05-21 21:33] VITALS: BP 142/67; PULSE 75; RESP 18; TEMP 98.3; O2SAT 98
[2017-05-22 00:27] VITALS: BP 137/72; PULSE 91; RESP 18; TEMP 99; O2SAT 97
[2017-05-22] MEDS: SODIUM CHLOR 0.9% 1000 ML INJ 1,000 ML IV SCH ×3 (02:39→18:45)
[2017-05-22 04:00] VITALS: BP 151/81; PULSE 100; RESP 18; TEMP 99.4; O2SAT 95
[2017-05-22] MEDS: HYDROmorphone HCL PF 1 MG/ML VIAL IV PUSH PRN (04:19)
[2017-05-22] MEDS: ACETAMINOPHEN/HYDROcodone 325 MG/7.5 MG TAB PO PRN ×4 (07:19→22:17)
[2017-05-22] MEDS: SODIUM CHLORIDE 0.9% FLUSH 10 ML FLUSH IV FLUSH SCH ×2 (08:15→21:00)
[2017-05-22 09:25] VITALS: BP 144/70; PULSE 91; RESP 20; TEMP 99.7; O2SAT 96
[2017-05-22 09:51] LABS: AUTOMATED NEUTROPHIL # 5.5 TH/MM3 (1.8-7.7); BASOPHIL % 0.5 % (0.0-2.0); EOSINOPHIL # 0.4 TH/MM3 (0-0.4); EOSINOPHIL % 5.4 % (0.0-4.0); HEMO FLAGS DIFF FINAL; LYMPH % 16.3 % (9.0-44.0); LYMPHOCYTE # 1.3 TH/MM3 (1.0-4.8); MEAN CORPUSCULAR HEMOGLOBIN 28.3 PG (27.0-34.0); MEAN CORPUSCULAR HGB CONC 34.5 % (32.0-36.0); MONO % 10.1 % (0.0-8.0); NEUT % 67.7 % (16.0-70.0); PLATELET COUNT 196 TH/MM3 (150-450); RED BLOOD COUNT 3.78 MIL/MM3 (4.50-5.90); RED CELL DISTRIBUTION WIDTH 13.2 % (11.6-17.2); WHITE BLOOD COUNT 8.1 TH/MM3 (4.0-11.0)
[2017-05-22 10:15] LABS: BICARBONATE 25.3 MEQ/L (21.0-32.0); POTASSIUM 3.8 MEQ/L (3.5-5.1)
--- NOTE | 2017-05-22 10:24 | HHI.PR ---
Subjective Remarks in no acute distress. afebrile. pain is better. no new complaints. Objective Vitals Vital Signs Date Time Temp Pulse Resp B/P (MAP) Pulse Ox O2 Delivery O2 Flow Rate FiO2 05/22/17 09:25 99.7 91 20 144/70 (94) 96 05/22/17 04:00 99.4 100 18 151/81 (104) 95 05/22/17 00:27 99.0 91 18 137/72 (93) 97 05/21/17 21:33 98.3 75 18 142/67 (92) 98 05/21/17 16:00 98.2 76 20 118/93 (101) 98 05/21/17 12:00 98.8 88 20 129/70 (89) 98 I/O 05/21/17 05/21/17 05/21/17 05/22/17 05/22/17 05/22/17 07:00 15:00 23:00 07:00 15:00 23:00 Intake Total 412 ml 1000 ml 508 ml 926 ml Output Total 300 ml 850 ml Balance 112 ml 1000 ml 508 ml 76 ml Intake Oral 360 ml IV Total 412 ml 1000 ml 508 ml 566 ml Output Urine Total 300 ml 850 ml Result Diagram: 05/22/17 0856 05/22/17 0856 Imaging Last Impressions Soft Tissue Ultrasound 05/18/17 0000 Signed Impressions: Service Date/Time: Thursday, May 18, 2017 17:02 - CONCLUSION: 1. 3.6 x 1.8 x 2.3 cm heterogeneous right inguinal collection consistent with abscess, as clinically questioned. Josiah Yusuf MD Objective Remarks GENERAL: This is a well-nourished, well-developed patient, in no apparent distress. CARDIOVASCULAR: Regular rate and regular rhythm without murmurs, gallops, or rubs. RESPIRATORY: Clear to auscultation. Breath sounds equal bilaterally. No wheezes , rales, or rhonchi. GASTROINTESTINAL: Abdomen soft, non-tender, nondistended. Normal, active bowel sounds MUSCULOSKELETAL: Extremities without clubbing, cyanosis, or edema. NEURO: Alert & Oriented x4 to person, place, time, situation. Moves all ext x4 skin; wound vac in place in right groin. Procedures I/D of the right groin abscess- wound vac placement. Medications and IVs Current Medications Sodium Chloride (NS Flush) 2 ml UNSCH PRN IV FLUSH FLUSH AFTER USING IV ACCESS ; Start 05/14/17 at 20:45 Sodium Chloride (NS Flush) 2 ml BID IV FLUSH Last administered on 05/20/17 20: 40; Start 05/14/17 at 21:00 Naloxone HCl (Narcan Inj) 0.4 mg UNSCH PRN IV PUSH SEE LABEL COMMENTS; Start 05/14/17 at 20:45 Pharmacy Profile Note 0 ml @ 0 mls/hr UNSCH OTHER ; Start 05/14/17 at 21:00; Stop 05/17/17 at 08:30; Status DC Piperacillin Sod/ Tazobactam Sod 100 ml @ 200 mls/hr Q6H IV Last administered on 05/20/17 13:55; Start 05/15/17 at 02:00; Stop 05/20/17 at 14:09; Status DC Vancomycin HCl 2500 mg/Sodium Chloride 525 ml @ 250 mls/hr ONCE ONCE IV Last administered on 05/15/17 02:42; Start 05/15/17 at 03:00; Stop 05/15/17 at 05 :05; Status DC Heparin Sodium (Porcine) (Heparin Inj) 5,000 units Q12HR SQ Last administered on 05/18/17 20:22; Start 05/15/17 at 09:00; Stop 05/18/17 at 21:04; Status DC Vancomycin HCl 2500 mg/Sodium Chloride 525 ml @ 250 mls/hr Q12H IV Last administered on 05/16/17 23:55; Start 05/15/17 at 12:00; Stop 05/17/17 at 08: 30; Status DC Miscellaneous Information SPECIFIC LAB TO BE DRAWN:VANCOMYCIN TROUGH DATE TO... ONCE ONCE .XX ; Start 05/16/17 at 11:45; Stop 05/16/17 at 11:46; Status DC Acetaminophen (Tylenol) 650 mg Q4H PRN PO PAIN SCALE 1 TO 3/fever Last administered on 05/21/17 00:34; Start 05/15/17 at 17:15 Acetaminophen/ Hydrocodone Bitart ([place] 5-325 Mg) 1 tab Q4H PRN PO PAIN SCALE 4 TO 7 Last administered on 05/21/17 01:47; Start 05/15/17 at 17:15; Stop 05/21/17 at 10:13; Status DC Acetaminophen/ Hydrocodone Bitart ([place] 10-325 Mg) 1 tab Q4H PRN PO PAIN SCALE 8 TO 10 Last administered on 05/16/17 04:14; Start 05/15/17 at 17:15; Stop 05/16/17 at 12:07; Status DC Sodium Chloride 1,000 ml @ 100 mls/hr Q10H IV Last administered on 05/16/17 09:30; Start 05/16/17 at 09:30; Stop 05/17/17 at 11:04; Status DC Hydromorphone HCl (Dilaudid Pf Inj) 1 mg ONCE ONCE IV PUSH Last administered on 05/16/17 12:26; Start 05/16/17 at 12:15; Stop 05/16/17 at 12:16; Status DC Hydromorphone HCl (Dilaudid Pf Inj) 1 mg DAILY PRN IV PUSH WOUND CARE Last administered on 05/22/17 04:19; Start 05/16/17 at 12:15 Hydromorphone HCl (Dilaudid) 4 mg Q3H PRN PO PAIN SCALE 8 TO 10 Last administered on 05/19/17 13:29; Start 05/16/17 at 15:00; Stop 05/19/17 at 13:57 ; Status DC Vancomycin HCl 2500 mg/Sodium Chloride 275 ml @ 262.5 mls/ hr Q12H IV ; Start 05/17/17 at 14:00; Stop 05/17/17 at 14:00; Status DC Pharmacy Profile Note 0 ml @ 0 mls/hr UNSCH PRN OTHER ADJUST FOR CREATININE CLRNCE; Start 05/17/17 at 10:45; Stop 05/20/17 at 09:03; Status DC Vancomycin HCl 2500 mg/Sodium Chloride 525 ml @ 250 mls/hr Q12H IV Last administered on 05/19/17 14:58; Start 05/17/17 at 14:00; Stop 05/19/17 at 16:43 ; Status DC Miscellaneous Information SPECIFIC LAB TO BE LUCAS... ONCE ONCE .XX Last administered on 05/19/17 13:45; Start 05/19/17 at 13:45; Stop 05/19/17 at 13:46 ; Status DC Ketorolac Tromethamine (Toradol) 10 mg Q6H PO Last administered on 05/20/17 08 :04; Start 05/18/17 at 15:00; Stop 05/20/17 at 09:03; Status DC Lactated Ringer's 1,000 ml @ 30 mls/hr Q24H PRN IV SEE LABEL COMMENTS; Start 05/19/17 at 03:15; Stop 05/20/17 at 09:03; Status DC Sodium Chloride 500 ml @ 30 mls/hr [id number] PRN IV SEE LABEL COMMENTS; Start at 03:15; Stop 05/20/17 at 09:03; Status DC Povidone Iodine (Betadine 5% Antisepsis Kit) 1 applic CELLOPHANE BATH MIXER PRN EACH NARE SEE LABEL COMMENTS; Start 05/19/17 at 03:15; Stop 05/22/17 at 03:14; Status DC Chlorhexidine Gluconate (Chlorhexidine 2% Cloth) 3 pack CELLOPHANE BATH MIXER PRN TOPICAL SEE LABEL COMMENTS; Start 05/19/17 at 03:15; Stop 05/22/17 at 03:14; Status DC Bupivacaine HCl/ Epinephrine Bitart (Sensorcaine-Epinephrine Pf 0.5% Inj) 30 ml STK-MED ONCE .ROUTE Last administered on 05/19/17 07:42; Start 05/19/17 at 07: 20; Stop 05/19/17 at 07:21; Status DC Morphine Sulfate (*morphine INJ PERIprocedure ONLY) 8 mg STK-MED ONCE .ROUTE Last administered on 05/19/17 08:44; Start 05/19/17 at 08:44; Stop 05/19/17 at 08:45; Status DC Morphine Sulfate (*morphine INJ PERIprocedure ONLY) 8 mg STK-MED ONCE .ROUTE Last administered on 05/19/17 08:53; Start 05/19/17 at 08:53; Stop 05/19/17 at 08:54; Status DC Miscellaneous Information ALL NURSING DEPARTME... UNSCH PRN .XX SEE LABEL COMMENTS; Start 05/19/17 at 09:15; Stop 05/20/17 at 09:14; Status DC Hydromorphone HCl (Dilaudid Pf Inj) 1 mg Q4H PRN IV PUSH PAIN 8-10 Last administered on 05/21/17 09:03; Start 05/19/17 at 14:00; Stop 05/21/17 at 10:13 ; Status DC Sodium Chloride 1,000 ml @ 100 mls/hr Q10H IV Last administered on 05/22/17 02:39; Start 05/20/17 at 09:15 Daptomycin 600 mg/ Sodium Chloride 100 ml @ 200 mls/hr Q24H IV Last administered on 05/21/17 16:16; Start 05/20/17 at 15:00 Ondansetron HCl (Zofran Inj) 4 mg Q8HR PRN IV PUSH NAUSEA; Start 05/20/17 at 17 :30 Diphenhydramine HCl (Benadryl Inj) 25 mg ONCE ONCE IV PUSH Last administered on 05/21/17 02:52; Start 05/21/17 at 03:00; Stop 05/21/17 at 03:01; Status DC Hydromorphone HCl (Dilaudid Pf Inj) 1 mg Q3HR PRN IV PUSH BREAKTHROUGH PAIN Last administered on 05/21/17 20:22; Start 05/21/17 at 11:15 Acetaminophen/ Hydrocodone Bitart ([place] 10-325 Mg) 1 tab Q4H PRN PO PAIN 4-7; Start 05/21/17 at 10:15 Acetaminophen/ Hydrocodone Bitart ([place] 7.5-325 Mg) 2 tab Q4H PRN PO PAIN 8- 10 Last administered on 05/22/17 07:19; Start 05/21/17 at 10:15 Diphenhydramine HCl (Benadryl) 25 mg Q6H PRN PO ITCHING Last administered on 21:21; Start 05/21/17 at 12:45 Diphenhydramine HCl (Benadryl Inj) 25 mg ONCE ONCE IV PUSH Last administered on 05/21/17 16:08; Start 05/21/17 at 16:15; Stop 05/21/17 at 16:16; Status DC Diphenhydramine HCl (Benadryl Inj) 25 mg ONCE ONCE IV PUSH Last administered on 05/21/17 23:13; Start 05/21/17 at 23:15; Stop 05/21/17 at 23:16; Status DC A/P Problem List: (1) Cellulitis of groin, right ICD Code: L03.314 - Cellulitis of groin (2) Sepsis ICD Code: A41.9 - Sepsis, unspecified organism (3) History of MRSA infection ICD Code: Z86.14 - Personal history of Methicillin resistant Staphylococcus aureus infection (4) Tobacco abuse ICD Code: Z72.0 - Tobacco use Assessment and Plan A/P 1. Cellulitis / absces of right groin/inguinal area - s/p I/D and wound vac placement/ removal- wound culture with MRSA- on Daptomycin. ID consult appreciated. continue pain control; gradual transition to po pain meds. surgery and ID following. 2. acute kidney injury- improving. continue IV fluid- monitor I/O and renal function closely. 3. Morbid Obesity strongly recommended diet and exercise as outpatient 4. Tobacco dependence strongly recommended to stop smoking. Discharge Planning when cleared by surgery and ID- Keaton Foster MD May 22, 2017 10:24
[2017-05-22 13:35] VITALS: BP 141/82; PULSE 95; RESP 20; TEMP 99.3; O2SAT 96
[2017-05-22] MEDS: DAPTOmycin INJ 600 MG in SODIUM CHLORIDE 0.9% INJ 100 ML IV SCH (14:53)
[2017-05-22 15:16] VITALS: BP 148/82; PULSE 98; RESP 20; TEMP 98.9; O2SAT 94
--- NOTE | 2017-05-22 17:15 | HHI.IDPN ---
Note Infectious Disease Note Patient notes less pain in the r. groin. Still itching but less. Afebrile. PAST MEDICAL HISTORY Past medical history significant for right thumb infection in 2004 due to MRSA. ALLERGIES NO KNOWN DRUG ALLERGIES. MEDICATIONS: Last Vancomycin dose was given on 07/20. Current Medications Medications (Trade) Dose Ordered Sig/Nelia Route PRN Reason Start Time Stop Time Status Last Admin Dose Admin Sodium Chloride (NS Flush) 2 ml UNSCH PRN IV FLUSH FLUSH AFTER USING IV ACCESS 05/14/17 20:45 Sodium Chloride (NS Flush) 2 ml BID IV FLUSH 05/14/17 21:00 05/20/17 20:40 Naloxone HCl (Narcan Inj) 0.4 mg UNSCH PRN IV PUSH SEE LABEL COMMENTS 05/14/17 20:45 Acetaminophen (Tylenol) 650 mg Q4H PRN PO PAIN SCALE 1 TO 3/fever 05/15/17 17:15 05/21/17 00:34 Hydromorphone HCl (Dilaudid Pf Inj) 1 mg DAILY PRN IV PUSH WOUND CARE 05/16/17 12:15 05/22/17 04:19 Sodium Chloride 1,000 ml @ 100 mls/hr Q10H IV 05/20/17 09:15 05/22/17 02:39 Daptomycin 600 mg/ Sodium Chloride 100 ml @ 200 mls/hr Q24H IV 05/20/17 15:00 05/22/17 14:53 Ondansetron HCl (Zofran Inj) 4 mg Q8HR PRN IV PUSH NAUSEA 05/20/17 17:30 Hydromorphone HCl (Dilaudid Pf Inj) 1 mg Q3HR PRN IV PUSH BREAKTHROUGH PAIN 05/21/17 11:15 05/21/17 20:22 Acetaminophen/ Hydrocodone Bitart ([place] 10-325 Mg) 1 tab Q4H PRN PO PAIN 4-7 05/21/17 10:15 Acetaminophen/ Hydrocodone Bitart ([place] 7.5-325 Mg) 2 tab Q4H PRN PO PAIN 8-10 05/21/17 10:15 05/22/17 13:10 Diphenhydramine HCl (Benadryl) 25 mg Q6H PRN PO ITCHING 05/21/17 12:45 05/21/17 21:21 OBJECTIVE: Vital Signs Date Time Temp Pulse Resp B/P (MAP) Pulse Ox O2 Delivery O2 Flow Rate FiO2 05/22/17 15:16 98.9 98 20 148/82 (104) 94 05/22/17 13:35 99.3 95 20 141/82 (101) 96 05/22/17 09:25 99.7 91 20 144/70 (94) 96 05/22/17 04:00 99.4 100 18 151/81 (104) 95 05/22/17 00:27 99.0 91 18 137/72 (93) 97 05/21/17 21:33 98.3 75 18 142/67 (92) 98 Laboratory Tests Test 05/22/17 08:56 White Blood Count 8.1 TH/MM3 Red Blood Count 3.78 MIL/MM3 Hemoglobin 10.7 GM/DL Hematocrit 31.0 % Mean Corpuscular Volume 82.0 FL Mean Corpuscular Hemoglobin 28.3 PG Mean Corpuscular Hemoglobin Concent 34.5 % Red Cell Distribution Width 13.2 % Platelet Count 196 TH/MM3 Mean Platelet Volume 8.1 FL Neutrophils (%) (Auto) 67.7 % Lymphocytes (%) (Auto) 16.3 % Monocytes (%) (Auto) 10.1 % Eosinophils (%) (Auto) 5.4 % Basophils (%) (Auto) 0.5 % Neutrophils # (Auto) 5.5 TH/MM3 Lymphocytes # (Auto) 1.3 TH/MM3 Monocytes # (Auto) 0.8 TH/MM3 Eosinophils # (Auto) 0.4 TH/MM3 Basophils # (Auto) 0.0 TH/MM3 CBC Comment DIFF FINAL Differential Comment Laboratory Tests Test 05/21/17 14:45 05/22/17 08:56 Blood Urea Nitrogen 13 MG/DL 11 MG/DL Creatinine 2.00 MG/DL 1.79 MG/DL Random Glucose 107 MG/DL 91 MG/DL Calcium Level 8.4 MG/DL 8.1 MG/DL Sodium Level 139 MEQ/L 137 MEQ/L Potassium Level 4.0 MEQ/L 3.8 MEQ/L Chloride Level 106 MEQ/L 105 MEQ/L Carbon Dioxide Level 24.8 MEQ/L 25.3 MEQ/L Anion Gap 8 MEQ/L 7 MEQ/L Estimat Glomerular Filtration Rate 39 ML/MIN 44 ML/MIN PHYSICAL EXAMINATION: GENERAL: No acute distress. Awake and alert and oriented. LUNGS: Clear to auscultation. HEART: Regular S1-S2 without murmurs, rubs or gallops. ABDOMEN: Bowel sounds present, soft, nontender. GROIN: The right groin wound clean. EXTREMITIES: No clubbing, cyanosis or edema. SKIN: No rash. NEUROLOGIC: Nonfocal. PSYCHIATRIC: Calm and cooperative. IMPRESSION Right groin abscess due to MRSA. Acute kidney disease. Very likely medication associated. RECOMMENDATIONS Okay to discharge on PO doxycycline 100mg bid x 10 days. Segun Yang MD May 22, 2017 17:15
--- NOTE | 2017-05-22 17:24 | HHI.PR ---
Subjective Subjective Notes still with iv pain meds for dressing change, wbc normal, no fevers Objective Vitals/I&O Vital Signs Date Time Temp Pulse Resp B/P (MAP) Pulse Ox O2 Delivery O2 Flow Rate FiO2 05/22/17 15:16 98.9 98 20 148/82 (104) 94 05/19/17 09:00 Nasal Cannula 3 Labs Laboratory Tests Test 05/22/17 08:56 White Blood Count 8.1 Red Blood Count 3.78 Hemoglobin 10.7 Hematocrit 31.0 Mean Corpuscular Volume 82.0 Mean Corpuscular Hemoglobin 28.3 Mean Corpuscular Hemoglobin Concent 34.5 Red Cell Distribution Width 13.2 Platelet Count 196 Mean Platelet Volume 8.1 Neutrophils (%) (Auto) 67.7 Lymphocytes (%) (Auto) 16.3 Monocytes (%) (Auto) 10.1 Eosinophils (%) (Auto) 5.4 Basophils (%) (Auto) 0.5 Neutrophils # (Auto) 5.5 Lymphocytes # (Auto) 1.3 Monocytes # (Auto) 0.8 Eosinophils # (Auto) 0.4 Basophils # (Auto) 0.0 CBC Comment DIFF FINAL Differential Comment Blood Urea Nitrogen 11 Creatinine 1.79 Random Glucose 91 Calcium Level 8.1 Sodium Level 137 Potassium Level 3.8 Chloride Level 105 Carbon Dioxide Level 25.3 Anion Gap 7 Estimat Glomerular Filtration Rate 44 Date/Time Source Procedure Growth Status 05/19/17 07:57 Wound Groin Fungal Smear - Final NO FUNGAL ELEMENTS SEEN. Resulted 05/19/17 07:57 Wound Groin Fungal Culture Pending Resulted Narrative Exam right groin with packing wet to dry A/P Assessment and Plan right groin swelling r/o abscess PLAN dressing changes bid, abx, pain control continue wound care ok to d/c when tolerating dressing change with po meds will s/o f/u with Dr. Morton in 2 weeks Mac Morton MD May 22, 2017 17:24
[2017-05-22] MEDS: diphenhydrAMINE HCL 25 MG CAP PO PRN (18:13)
[2017-05-22 20:00] VITALS: BP 162/74; PULSE 81; RESP 22; TEMP 98.1; O2SAT 97
[2017-05-23] VITALS: BP 136/66; PULSE 98; RESP 21; TEMP 100; O2SAT 93
[2017-05-23] MEDS: ACETAMINOPHEN/HYDROcodone 325 MG/7.5 MG TAB PO PRN ×2 (01:51→09:06)
[2017-05-23 02:53] VITALS: BP 147/78; PULSE 88; RESP 21; TEMP 99.4; O2SAT 95
[2017-05-23] MEDS: SODIUM CHLOR 0.9% 1000 ML INJ 1,000 ML IV SCH ×2 (07:15→17:15)
[2017-05-23 08:10] VITALS: BP 167/83; PULSE 86; RESP 20; TEMP 98.1; O2SAT 96
[2017-05-23] MEDS: SODIUM CHLORIDE 0.9% FLUSH 10 ML FLUSH IV FLUSH SCH (09:00)
--- NOTE | 2017-05-23 09:53 | HHI.PR ---
Subjective Remarks in no acute distres. overall doing fine with no new complaints. wants to go home today. Objective Vitals Vital Signs Date Time Temp Pulse Resp B/P (MAP) Pulse Ox O2 Delivery O2 Flow Rate FiO2 05/23/17 08:10 98.1 86 20 167/83 (111) 96 05/23/17 02:53 99.4 88 21 147/78 (101) 95 05/23/17 00:00 100.0 98 21 136/66 (89) 93 05/22/17 20:00 98.1 81 22 162/74 (103) 97 05/22/17 15:16 98.9 98 20 148/82 (104) 94 05/22/17 13:35 99.3 95 20 141/82 (101) 96 I/O 05/22/17 05/22/17 05/22/17 05/23/17 05/23/17 05/23/17 07:00 15:00 23:00 07:00 15:00 23:00 Intake Total 926 ml 940 ml 1200 ml Output Total 850 ml Balance 76 ml 940 ml 1200 ml Intake Oral 360 ml 940 ml IV Total 566 ml 1200 ml Output Urine Total 850 ml # Voids 3 2 # Bowel Movements 1 0 Result Diagram: 05/22/17 0856 05/22/17 0856 Imaging Last Impressions Soft Tissue Ultrasound 05/18/17 0000 Signed Impressions: Service Date/Time: Thursday, May 18, 2017 17:02 - CONCLUSION: 1. 3.6 x 1.8 x 2.3 cm heterogeneous right inguinal collection consistent with abscess, as clinically questioned. Josiah Yusuf MD Objective Remarks GENERAL: This is a well-nourished, well-developed patient, in no apparent distress. CARDIOVASCULAR: Regular rate and regular rhythm without murmurs, gallops, or rubs. RESPIRATORY: Clear to auscultation. Breath sounds equal bilaterally. No wheezes , rales, or rhonchi. GASTROINTESTINAL: Abdomen soft, non-tender, nondistended. Normal, active bowel sounds MUSCULOSKELETAL: Extremities without clubbing, cyanosis, or edema. NEURO: Alert & Oriented x4 to person, place, time, situation. Moves all ext x4 skin; wound vac in place in right groin. Procedures I/D of the right groin abscess- wound vac placement. Medications and IVs Current Medications Sodium Chloride (NS Flush) 2 ml UNSCH PRN IV FLUSH FLUSH AFTER USING IV ACCESS ; Start 05/14/17 at 20:45 Sodium Chloride (NS Flush) 2 ml BID IV FLUSH Last administered on 05/20/17 20: 40; Start 05/14/17 at 21:00 Naloxone HCl (Narcan Inj) 0.4 mg UNSCH PRN IV PUSH SEE LABEL COMMENTS; Start 05/14/17 at 20:45 Pharmacy Profile Note 0 ml @ 0 mls/hr UNSCH OTHER ; Start 05/14/17 at 21:00; Stop 05/17/17 at 08:30; Status DC Piperacillin Sod/ Tazobactam Sod 100 ml @ 200 mls/hr Q6H IV Last administered on 05/20/17 13:55; Start 05/15/17 at 02:00; Stop 05/20/17 at 14:09; Status DC Vancomycin HCl 2500 mg/Sodium Chloride 525 ml @ 250 mls/hr ONCE ONCE IV Last administered on 05/15/17 02:42; Start 05/15/17 at 03:00; Stop 05/15/17 at 05 :05; Status DC Heparin Sodium (Porcine) (Heparin Inj) 5,000 units Q12HR SQ Last administered on 05/18/17 20:22; Start 05/15/17 at 09:00; Stop 05/18/17 at 21:04; Status DC Vancomycin HCl 2500 mg/Sodium Chloride 525 ml @ 250 mls/hr Q12H IV Last administered on 05/16/17 23:55; Start 05/15/17 at 12:00; Stop 05/17/17 at 08: 30; Status DC Miscellaneous Information SPECIFIC LAB TO BE DRAWN:VANCOMYCIN TROUGH DATE TO... ONCE ONCE .XX ; Start 05/16/17 at 11:45; Stop 05/16/17 at 11:46; Status DC Acetaminophen (Tylenol) 650 mg Q4H PRN PO PAIN SCALE 1 TO 3/fever Last administered on 05/21/17 00:34; Start 05/15/17 at 17:15 Acetaminophen/ Hydrocodone Bitart (Bena 5-325 Mg) 1 tab Q4H PRN PO PAIN SCALE 4 TO 7 Last administered on 05/21/17 01:47; Start 05/15/17 at 17:15; Stop 05/21/17 at 10:13; Status DC Acetaminophen/ Hydrocodone Bitart (Bena 10-325 Mg) 1 tab Q4H PRN PO PAIN SCALE 8 TO 10 Last administered on 05/16/17 04:14; Start 05/15/17 at 17:15; Stop 05/16/17 at 12:07; Status DC Sodium Chloride 1,000 ml @ 100 mls/hr Q10H IV Last administered on 05/16/17 09:30; Start 05/16/17 at 09:30; Stop 05/17/17 at 11:04; Status DC Hydromorphone HCl (Dilaudid Pf Inj) 1 mg ONCE ONCE IV PUSH Last administered on 05/16/17 12:26; Start 05/16/17 at 12:15; Stop 05/16/17 at 12:16; Status DC Hydromorphone HCl (Dilaudid Pf Inj) 1 mg DAILY PRN IV PUSH WOUND CARE Last administered on 05/22/17 04:19; Start 05/16/17 at 12:15 Hydromorphone HCl (Dilaudid) 4 mg Q3H PRN PO PAIN SCALE 8 TO 10 Last administered on 05/19/17 13:29; Start 05/16/17 at 15:00; Stop 05/19/17 at 13:57 ; Status DC Vancomycin HCl 2500 mg/Sodium Chloride 275 ml @ 262.5 mls/ hr Q12H IV ; Start 05/17/17 at 14:00; Stop 05/17/17 at 14:00; Status DC Pharmacy Profile Note 0 ml @ 0 mls/hr UNSCH PRN OTHER ADJUST FOR CREATININE CLRNCE; Start 05/17/17 at 10:45; Stop 05/20/17 at 09:03; Status DC Vancomycin HCl 2500 mg/Sodium Chloride 525 ml @ 250 mls/hr Q12H IV Last administered on 05/19/17 14:58; Start 05/17/17 at 14:00; Stop 05/19/17 at 16:43 ; Status DC Miscellaneous Information SPECIFIC LAB TO BE ... ONCE ONCE .XX Last administered on 05/19/17 13:45; Start 05/19/17 at 13:45; Stop 05/19/17 at 13:46 ; Status DC Ketorolac Tromethamine (Toradol) 10 mg Q6H PO Last administered on 05/20/17 08 :04; Start 05/18/17 at 15:00; Stop 05/20/17 at 09:03; Status DC Lactated Ringer's 1,000 ml @ 30 mls/hr Q24H PRN IV SEE LABEL COMMENTS; Start 05/19/17 at 03:15; Stop 05/20/17 at 09:03; Status DC Sodium Chloride 500 ml @ 30 mls/hr [id number] PRN IV SEE LABEL COMMENTS; Start at 03:15; Stop 05/20/17 at 09:03; Status DC Povidone Iodine (Betadine 5% Antisepsis Kit) 1 applic CUSHION MAKER HAND PRN EACH NARE SEE LABEL COMMENTS; Start 05/19/17 at 03:15; Stop 05/22/17 at 03:14; Status DC Chlorhexidine Gluconate (Chlorhexidine 2% Cloth) 3 pack CUSHION MAKER HAND PRN TOPICAL SEE LABEL COMMENTS; Start 05/19/17 at 03:15; Stop 05/22/17 at 03:14; Status DC Bupivacaine HCl/ Epinephrine Bitart (Sensorcaine-Epinephrine Pf 0.5% Inj) 30 ml STK-MED ONCE .ROUTE Last administered on 05/19/17 07:42; Start 05/19/17 at 07: 20; Stop 05/19/17 at 07:21; Status DC Morphine Sulfate (*morphine INJ PERIprocedure ONLY) 8 mg STK-MED ONCE .ROUTE Last administered on 05/19/17 08:44; Start 05/19/17 at 08:44; Stop 05/19/17 at 08:45; Status DC Morphine Sulfate (*morphine INJ PERIprocedure ONLY) 8 mg STK-MED ONCE .ROUTE Last administered on 05/19/17 08:53; Start 05/19/17 at 08:53; Stop 05/19/17 at 08:54; Status DC Miscellaneous Information ALL NURSING DEPARTME... UNSCH PRN .XX SEE LABEL COMMENTS; Start 05/19/17 at 09:15; Stop 05/20/17 at 09:14; Status DC Hydromorphone HCl (Dilaudid Pf Inj) 1 mg Q4H PRN IV PUSH PAIN 8-10 Last administered on 05/21/17 09:03; Start 05/19/17 at 14:00; Stop 05/21/17 at 10:13 ; Status DC Sodium Chloride 1,000 ml @ 100 mls/hr Q10H IV Last administered on 05/22/17 18:45; Start 05/20/17 at 09:15 Daptomycin 600 mg/ Sodium Chloride 100 ml @ 200 mls/hr Q24H IV Last administered on 05/22/17 14:53; Start 05/20/17 at 15:00 Ondansetron HCl (Zofran Inj) 4 mg Q8HR PRN IV PUSH NAUSEA; Start 05/20/17 at 17 :30 Diphenhydramine HCl (Benadryl Inj) 25 mg ONCE ONCE IV PUSH Last administered on 05/21/17 02:52; Start 05/21/17 at 03:00; Stop 05/21/17 at 03:01; Status DC Hydromorphone HCl (Dilaudid Pf Inj) 1 mg Q3HR PRN IV PUSH BREAKTHROUGH PAIN Last administered on 05/21/17 20:22; Start 05/21/17 at 11:15 Acetaminophen/ Hydrocodone Bitart (Bena 10-325 Mg) 1 tab Q4H PRN PO PAIN 4-7; Start 05/21/17 at 10:15 Acetaminophen/ Hydrocodone Bitart (Bena 7.5-325 Mg) 2 tab Q4H PRN PO PAIN 8- 10 Last administered on 05/23/17 09:06; Start 05/21/17 at 10:15 Diphenhydramine HCl (Benadryl) 25 mg Q6H PRN PO ITCHING Last administered on 18:13; Start 05/21/17 at 12:45 Diphenhydramine HCl (Benadryl Inj) 25 mg ONCE ONCE IV PUSH Last administered on 05/21/17 16:08; Start 05/21/17 at 16:15; Stop 05/21/17 at 16:16; Status DC Diphenhydramine HCl (Benadryl Inj) 25 mg ONCE ONCE IV PUSH Last administered on 05/21/17 23:13; Start 05/21/17 at 23:15; Stop 05/21/17 at 23:16; Status DC A/P Problem List: (1) Cellulitis of groin, right ICD Code: L03.314 - Cellulitis of groin (2) Sepsis ICD Code: A41.9 - Sepsis, unspecified organism (3) History of MRSA infection ICD Code: Z86.14 - Personal history of Methicillin resistant Staphylococcus aureus infection (4) Tobacco abuse ICD Code: Z72.0 - Tobacco use Assessment and Plan A/P 1. Cellulitis / absces of right groin/inguinal area - s/p I/D and wound vac placement/ removal- wound culture with MRSA- will switch to Doxycycline- cleared by ID for discharge. continue pain control; gradual transition to po pain meds. surgery and ID following. 2. acute kidney injury- improving. continue IV fluid- monitor I/O and renal function - 3. Morbid Obesity strongly recommended diet and exercise as outpatient 4. Tobacco dependence strongly recommended to stop smoking. Discharge Planning dc home today after BMP is resulted. see med list. f/u; pcp and surgery. d/w the patient. Keaton Foster MD May 23, 2017 09:53
[2017-05-23] MEDS ORDERED: NORC5TAB PO (09:54)
[2017-05-23] MEDS ORDERED: DOXY100C PO (09:54)
--- NOTE | 2017-05-23 09:57 | HHI.DS ---
Discharge Summary Admission Date May 14, 2017 at 23:55 Discharge Date: May 23, 2017 Admitting Diagnosis Cellulitis - suspected abscess right groin/inguinal area (1) Cellulitis of groin, right ICD Code: L03.314 - Cellulitis of groin Diagnosis: Principal (2) Sepsis ICD Code: A41.9 - Sepsis, unspecified organism Diagnosis: Principal (3) History of MRSA infection ICD Code: Z86.14 - Personal history of Methicillin resistant Staphylococcus aureus infection Diagnosis: Secondary Procedures I/D of the right groin abscess- wound vac placement. Brief History - From Admission Mr. Forrest is a very pleasant 31-year-old male with a history of right thumb MRSA infection who presented to the emergency room in [place] for evaluation of right inguinal/groin area swelling, pain, and fevers. His temperature was 100.3 on admission and he was tachycardic with heart rate of 109. White blood count was elevated at 22.4 and left shift was noted. The patient had a CT of the abdomen and pelvis which showed right inguinal cellulitis with no abscess formation and the patient was transferred to [facility] for further medical management. The patient is seen in his hospital room. He reports having symptoms for since Friday or Friday. He had a "boil" that he popped on his left upper medial thigh that drained purulent exudate and has continued to drain since Friday or Friday. Around the same time, he noted a lump in the right groin/inguinal region that got progressively more painful and hard. He also had chills and diaphoresis along with generally feeling not very well with fatigue, nausea, and increased sleepiness. He denies any chest pain, cough, shortness of breath , diarrhea, vomiting, or recorded fevers. CBC/BMP: 05/22/17 0856 05/22/17 0856 Significant Findings Laboratory Tests Test 05/20/17 10:41 05/21/17 14:45 05/22/17 08:56 Creatinine 2.00 MG/DL (0.60-1.30) 1.79 MG/DL (0.60-1.30) Random Glucose 107 MG/DL (74-106) Calcium Level 8.4 MG/DL (8.5-10.1) 8.1 MG/DL (8.5-10.1) Estimat Glomerular Filtration Rate 39 ML/MIN (>89) 44 ML/MIN (>89) Red Blood Count 3.78 MIL/MM3 (4.50-5.90) Hemoglobin 10.7 GM/DL (13.0-17.0) Hematocrit 31.0 % (39.0-51.0) Monocytes (%) (Auto) 10.1 % (0.0-8.0) Eosinophils (%) (Auto) 5.4 % (0.0-4.0) Imaging Last Impressions Soft Tissue Ultrasound 05/18/17 0000 Signed Impressions: Service Date/Time: Thursday, May 18, 2017 17:02 - CONCLUSION: 1. 3.6 x 1.8 x 2.3 cm heterogeneous right inguinal collection consistent with abscess, as clinically questioned. Josiah Yusuf MD PE at Discharge GENERAL: This is a well-nourished, well-developed patient, in no apparent distress. CARDIOVASCULAR: Regular rate and regular rhythm without murmurs, gallops, or rubs. RESPIRATORY: Clear to auscultation. Breath sounds equal bilaterally. No wheezes , rales, or rhonchi. GASTROINTESTINAL: Abdomen soft, non-tender, nondistended. Normal, active bowel sounds MUSCULOSKELETAL: Extremities without clubbing, cyanosis, or edema. NEURO: Alert & Oriented x4 to person, place, time, situation. Moves all ext x4 skin; wound vac in place in right groin. Hospital Course patient was admitted with cellulitis/ abscess of the right groin. he underwent I /D and wound vac which was removed before discharge. he was initially started on IV Vanco -however due to acute kidney injury , IV Vanco was stopped and started on IV Daptomycin per ID recommendations. this was switched to po Doxycycline. he was cleared by ID and general surgery for discharge. his renal function improved after IV hydration. Pt Condition on Discharge: Good Discharge Disposition: Discharge Home Discharge Time: <= 30 minutes Discharge Instructions DIET: Follow Instructions for: Heart Healthy Diet Activities you can perform: Regular-No Restrictions Follow up Referrals: PCP Follow-up Surgical New Orders: BASIC METABOLIC PROF New Medications: Doxycycline Hyclate (Doxycycline Hyclate) 100 Mg Cap 100 MG PO BID for Infection, #20 CAP 0 Refills Hydrocodone-Acetaminophen (Edwards) 5 Mg-325 Mg Tab 1 TAB PO Q6H PRN for PAIN, #10 TAB 0 Refills Keaton Foster MD May 23, 2017 09:57
--- NOTE | 2017-05-23 11:21 | HHI.FF ---
Face to Face Verification Diagnosis: (1) Cellulitis of groin, right Home Health Nursing Order: Wound care and dressing changes Instructions: wet to dry dressing- twice daily- ok to shower in between dressing changes. I have seen patient Butch Forrest on 05/23/17. My clinical findings support the need for the requested home health care services because: Ltd mobility - disease progression I certify that my clinical findings support that this patient is homebound because: Post-op weakness Keaton Foster MD May 23, 2017 11:21
[2017-05-23 11:27] VITALS: BP 154/74; PULSE 93; RESP 20; TEMP 100; O2SAT 96
[2017-05-23 12:58] LABS: BICARBONATE 26.2 MEQ/L (21.0-32.0); POTASSIUM 3.8 MEQ/L (3.5-5.1)
[2017-05-23] MEDS: DAPTOmycin INJ 600 MG in SODIUM CHLORIDE 0.9% INJ 100 ML IV SCH (15:00)
[2017-05-23 16:18] VITALS: BP 136/67; PULSE 79; RESP 20; TEMP 98.5; O2SAT 97
== END 2017-05-23 17:39 | disposition home health service (06) | DRG 872 ==
LOC: NEDDLT 23:45 → N05A 23:55
PROVIDERS: ADMIT Internal Medicine; ATTEND Internal Medicine
PROC: 0H9AXZZ Drainage of Inguinal Skin, External Approach (ICD-10-PCS; principal; 2017-05-19 07:15)
DX: A41.9 Sepsis, unspecified organism (principal); N17.9 Acute kidney failure, unspecified; Z68.43 Body mass index [BMI] 50.0-59.9, adult; L02.214 Cutaneous abscess of groin; L03.311 Cellulitis of abdominal wall; L03.314 Cellulitis of groin; L02.92 Furuncle, unspecified; T36.8X5A Adverse effect of other systemic antibiotics, initial encounter; E66.01 Morbid (severe) obesity due to excess calories; K80.20 Calculus of gallbladder without cholecystitis without obstruction; B95.62 Methicillin resistant Staphylococcus aureus infection as the cause of diseases classified elsewhere; F12.10 Cannabis abuse, uncomplicated; F17.210 Nicotine dependence, cigarettes, uncomplicated; Y92.239 Unspecified place in hospital as the place of occurrence of the external cause; Z86.14 Personal history of Methicillin resistant Staphylococcus aureus infection
CPT/HCPCS: 74177; 76937; 76999; 80048; 80053; 80061; 80202; 81001; 82565; 83036; 83605; 84300; 84443; 85025; 86403; 87015; 87040; 87070; 87102; 87116; 87147; 87186; 87205; 87206; 96361; 96365; 96368; 96375; J0878; J1170; J1200; J1644; J1885; J2270; J2543; J3370; J7030; J7040; J7050; Q9967